=== PATIENT | male | born 1945 | race Caucasian/White ===

== ENCOUNTER 2018-04-21 11:17 | Outpatient (CLI) | payer MEDICARE, MEDICAID ==
[2018-04-21 13:10] LABS: Bilirubin Small (Negative); Blood, Urine Negative (Negative); Clarity CLEAR (Clear); Glucose, Urine (Dipstick) Negative (Negative); Leukocyte Trace (Negative); Nitrite Negative (Negative); Protein, Urine (Dipstick) Negative (Neg-Trace); Specific Gravity, Urine 1.019 (1.002-1.036); pH, Urine 7.5 (5.0-9.0)
[2018-04-21 13:13] LABS: Bacteria/HPF None Seen HPF (None Seen); Hyaline Casts/LPF 0-3 HYALINE CAST LPF (0-3 Hyaline); Pathc Cast-AUWi Flag 0.14 (0-2.49); Squamous Epithelial 0-3 HPF (0-3); WBC/HPF 0-3 HPF (0-3)
[2018-04-21 13:16] LABS: Hemoglobin 12.2 g/dL (14.0-18.0); Mean Corpuscular HGB CONC 32.5 g/dL (32.0-36.0); Mean Corpuscular Hemoglobin 32.9 pg (27.0-31.0); Mean Platelet Volume 8.1 fL (7.4-10.4); Platelet Count 243 thou/uL (130-400); RBC Distribution Width 15.6 % (11.5-14.5); Red Blood Cell (RBC) Count 3.72 mill/uL (4.70-6.10); White Blood Cell (WBC) Count 5.8 thou/uL (4.8-10.8)
[2018-04-21 13:18] LABS: INR-International Normal Ratio 1.1; PTT 32.9 SEC (22.9-36.1)
[2018-04-21 13:27] LABS: Anion Gap 13 mmol/L (10-20); BUN (Urea Nitrogen) 14 mg/dL (8.4-25.7); Calc. Creatinine Clearance 0 mL/min (70-130); Calcium 8.5 mg/dL (7.8-10.44); Carbon Dioxide 23 mmol/L (23-31); Chloride 103 mmol/L (98-107); Estimated GFR-MDRD 52; Glucose 176 mg/dL (80-115); Sodium 135 mmol/L (136-145)
== END 2018-04-21 11:18 | disposition home or self-care (01) ==
LOC: LABBT 11:17
PROVIDERS: ATTEND Urology
DX: Z01.818 Encounter for other preprocedural examination (principal); N47.8 Other disorders of prepuce
CPT/HCPCS: 80048; 81001; 85027; 85610; 85730; 87086; 93005; 93010

== ENCOUNTER 2018-05-05 05:49 | Day surgery (SDC) | payer MEDICARE, MEDICAID ==
[2018-04-21 12:10] VITALS: BMI 24.0
[2018-05-05] MEDS ORDERED: CEFAZOLIN 1 GM VIAL ONE (06:34)
[2018-05-05] MEDS ORDERED: Sodium Chloride 0.9% 100 ML ONE (06:34)
[2018-05-05] MEDS ORDERED: Bacitracin Zinc Ointment 30 gm TUBE ONE (06:35)
[2018-05-05] MEDS ORDERED: Bupivacaine 0.25% HCL 30 ML VIAL ONE (06:35)
[2018-05-05] MEDS ORDERED: Midazolam HCl 2 mg/2 ml Vial ONE (06:46)
[2018-05-05] MEDS ORDERED: Fentanyl 100 MCG/2 ML VIAL ONE ×2 (06:46→09:03)
--- NOTE | 2018-05-05 09:58 | OP ---
DATE OF PROCEDURE: 05/05/2018 PREOPERATIVE DIAGNOSES: A 72-year-old male with history of benign prostatic hyperplasia, h/o chronic prostatitis, severe phimosis. POSTOPERATIVE DIAGNOSES: A 72-year-old male with history of benign prostatic hyperplasia, h/o chronic prostatitis, severe phimosis. PROCEDURE: Circumcision. SURGEON: Juanita Ramirez D.O. ANESTHESIA: LMA. COMPLICATIONS: None apparent. SPECIMEN: Foreskin. INTRAOPERATIVE FINDINGS: Tight phimosis. INDICATIONS FOR THE PROCEDURE AND HISTORY: Mr. Waters is a 72-year-old male with history of BPH, history of chronic prostatitis. His prior cystoscopy demonstrated mild BPH with no evidence of urethral stricture disease. However, he has tight phimosis. As this is most likely culprit for recurrent UTI/ bacteria, he is advised regarding circumcision. He has been seen by Dr. Bermudez, cleared to proceed, and has transitioned Plavix and full-dose aspirin to baby aspirin. Risks and complications of the procedure were reviewed with him in detail including, but not limited to, bleeding, pain, infection, injury to adjacent organs, penile curvature, meatal stenosis, wound complications. All questions were answered to his satisfaction, and he desired to proceed. DESCRIPTION OF THE PROCEDURE: After an informed consent is signed, the patient is taken to the operating room, placed in supine position with the genital area prepped and draped in the usual surgical sterile fashion. His foreskin is so tight that I was unable to reduce manually. Therefore, I did utilize a hemostat to dilate his prepuce. Subsequently, with manipulation, I was able to reduce his foreskin. Tight paraphimotic ring was noted. The foreskin was marked at the level of the coronal sulcus and the ring of foreskin was excised with a 15 blade. Good hemostasis was obtained of the dartos fascia intermittently with electrocautery. The foreskin was then reapproximated using 2-0 chromic in an interrupted fashion. He tolerated the procedure well. Good approximation was noted. Approximately 7 mL of 0.25% Marcaine was utilized for local penile block. The patient discharged with Keflex for 7 days, Colace, [place] 5/325 #30 provided 1 p.o. q.6-8 hours p.r.n. He will follow up with me next for a wound check. He is advised to continue to hold his Plavix, full-dose aspirin; may continue his baby aspirin. Appointment 05/13/2018. PAULINA
[2018-05-05] MEDS ORDERED: ePHEDrine/0.9% NaCl/PF SYRINGE 50 mg/10 ml ONE (15:43)
[2018-05-05] MEDS ORDERED: PROPOFOL 200 MG/20 ML VIAL ONE (15:43)
[2018-05-05] MEDS ORDERED: Lidocaine 1% PF 5 ML VIAL ONE (15:43)
[2018-05-05] MEDS ORDERED: Ondansetron HCl/PF 4 MG/2 ML Vial ONE (15:43)
== END 2018-05-05 11:05 | disposition home or self-care (01) ==
LOC: SDC 05:49
PROVIDERS: ATTEND Urology
PROC: 0VTTXZZ Resection of Prepuce, External Approach (ICD-10-PCS; principal; 2018-05-05)
DX: N47.1 Phimosis (principal); N40.1 Benign prostatic hyperplasia with lower urinary tract symptoms; N41.1 Chronic prostatitis; I10 Essential (primary) hypertension; I25.10 Atherosclerotic heart disease of native coronary artery without angina pectoris; F12.20 Cannabis dependence, uncomplicated; F10.20 Alcohol dependence, uncomplicated; Z79.02 Long term (current) use of antithrombotics/antiplatelets; Z79.899 Other long term (current) drug therapy
CPT/HCPCS: 88304; 96374; J0690; J2001; J2250; J2405; J2704; J3010; J7050; S0020

== ENCOUNTER 2018-08-19 17:01 | Emergency (ER) | payer MEDICARE, MEDICAID ==
[2018-08-19 18:09] LABS: Hemoglobin 8.6 g/dL (14.0-18.0); Mean Corpuscular HGB CONC 31.9 g/dL (32.0-36.0); Mean Corpuscular Hemoglobin 27.7 pg (27.0-31.0); Mean Corpuscular Volume 86.9 fL (78.0-98.0); Mean Platelet Volume 7.8 fL (7.4-10.4); Platelet Count 373 thou/uL (130-400); RBC Distribution Width 16.4 % (11.5-14.5); Red Blood Cell (RBC) Count 3.11 mill/uL (4.70-6.10); White Blood Cell (WBC) Count 6.7 thou/uL (4.8-10.8)
[2018-08-19 18:23] LABS: ALT (SGPT) 13 U/L (8-55); AST (SGOT) 15 U/L (5-34); Albumin 3.6 g/dL (3.4-4.8); Alkaline Phosphatase 93 U/L (40-150); Anion Gap 15 mmol/L (10-20); BUN (Urea Nitrogen) 9 mg/dL (8.4-25.7); Bilirubin, Total 0.4 mg/dL (0.2-1.2); Calc. Creatinine Clearance 0 mL/min (70-130); Calcium 8.4 mg/dL (7.8-10.44); Carbon Dioxide 20 mmol/L (23-31); Chloride 102 mmol/L (98-107); Estimated GFR-MDRD 84; Globulin 2.8 g/dL (2.4-3.5); Glucose 123 mg/dL (83-110); Potassium 4.5 mmol/L (3.5-5.1); Protein, Total 6.4 g/dL (5.8-8.1); Sodium 132 mmol/L (136-145)
[2018-08-19 18:25] LABS: Anisocytosis SLIGHT = 6-15 cells (100X) (0-5/hpf); Band 4 % (5-11); Hypochromia SLIGHT = 6-15 cells (100X) (0-5/hpf); Lymphocytes 17 % (21-51); MDiff Complete? YES; Monocytes 7 % (0-10); Neutrophil 72 % (42-75); Ovalocytes SLIGHT = 2-5 cells (100X) (0-1/hpf); PLT Morphology Comment Appears Adequate; Polychromasia SLIGHT = 2-3 cells (100X) (0-2/hpf); Schistocytes SLIGHT = 2-5 cells (100X) (0-1/hpf); Target Cells SLIGHT = 2-5 cells (100X) (0-1/hpf); Tear Drops SLIGHT = 2-5 cells (100X) (0-1/hpf)
--- NOTE | 2018-08-19 19:06 | RAD ---
RIGHT SHOULDER RADIOGRAPH THREE VIEWS: 08/19/18 PROVIDED CLINICAL HISTORY: Right shoulder pain status post injury. FINDINGS: Probable nondisplaced fracture involving the medial third of the clavicle. No additional fracture is evident. The glenohumeral relationship appears normal. The acromioclavicular joint degenerative cotton es are seen. The subacromial space appears preserved. IMPRESSION: Probable medial right clavicular fracture. Consider dedicated clavicular radiographs. POS: [facility]
[2018-08-19] MEDS ORDERED: traMADol HCl 50 MG TAB ONE (21:09)
--- NOTE | 2018-08-19 22:09 | CT ---
CT PULMONARY ANGIOGRAM WITH IV CONTRAST AND 3D MIP RECONSTRUCTIONS 08/19/18 PROVIDED CLINICAL HISTORY: Shortness of breath and syncope. FINDINGS: There is no evidence for central or segmental pulmonary embolus. Vascular calcification including cor onary calcium is demonstrated. There is focal fluid density present within the right lower lobe segmental bronchus compatible with a spirated material. There is no parenchymal opacity associated with this. The lungs appear free of sig nificant opacity. There is no pleural fluid or pneumothorax. The airway appears otherwise patent and of normal caliber. The visualized portions of the upper abdomen demonstrate no evidence for an acute process. The osseous structures demonstrate markedly comminuted mildly displaced fracture involving t he mid and proximal aspects of the right clavicle. IMPRESSION: 1. No evidence for central or segmental pulmonary embolus. 2. Findings compatible with right lower lobe bronchial fluid density related to aspiration. No a ssociated aspiration pneumonitis is evident. There is trace right pleural fluid 3. Right clavicular fracture. POS: [facility]
--- NOTE | 2018-08-21 22:12 | EKG ---
Test Reason : Blood Pressure : / mmHG Vent. Rate : 060 BPM Atrial Rate : 060 BPM P-R Int : 138 ms QRS Dur : 160 ms QT Int : 524 ms P-R-T Axes : 052 039 148 degrees QTc Int : 524 ms Normal sinus rhythm Left bundle branch block Abnormal ECG No changes from [id number] Confirmed by NADINE EDGE DO ([id number]), senior editor VERONICA SANTAMARIA ([id number] on 08/21/2018 10:12:22 PM Referred By: Confirmed By:NADINE EDGE DO
== END 2018-08-19 21:19 | disposition home or self-care (01) ==
LOC: ERS 17:01
DX: S42.001A Fracture of unspecified part of right clavicle, initial encounter for closed fracture (principal); D64.9 Anemia, unspecified; K21.9 Gastro-esophageal reflux disease without esophagitis; E78.5 Hyperlipidemia, unspecified; I10 Essential (primary) hypertension; J44.9 Chronic obstructive pulmonary disease, unspecified; F17.210 Nicotine dependence, cigarettes, uncomplicated; Z79.899 Other long term (current) drug therapy; Z79.82 Long term (current) use of aspirin; W17.89XA Other fall from one level to another, initial encounter
CPT/HCPCS: 36415; 71275; 80053; 84484; 85025; 93005

== ENCOUNTER 2018-09-12 17:54 | Inpatient (IN) | payer MEDICARE, MEDICAID ==
[2018-09-12 18:29] LABS: #Lymphocytes 1.1 thou/uL (1.20-3.40); #Monocytes 0.7 thou/uL (0.11-0.59); #Neutrophils 5.3 thou/uL (1.40-6.50); %Basophils 0.6 % (0.0-1.0); %Eosinophils 0.2 % (0.0-10.0); %Lymphocytes 15.2 % (21.0-51.0); %Monocytes 10.3 % (0.0-10.0); %Neutrophils 73.6 % (42.0-75.0); Hemoglobin 9.9 g/dL (14.0-18.0); Mean Corpuscular HGB CONC 30.6 g/dL (32.0-36.0); Mean Corpuscular Hemoglobin 25.4 pg (27.0-31.0); Mean Corpuscular Volume 83.1 fL (78.0-98.0); Mean Platelet Volume 7.6 fL (7.4-10.4); Platelet Count 446 thou/uL (130-400); Red Blood Cell (RBC) Count 3.89 mill/uL (4.70-6.10); White Blood Cell (WBC) Count 7.1 thou/uL (4.8-10.8)
--- NOTE | 2018-09-12 18:42 | RAD ---
CHEST ONE VIEW: HISTORY: Chest pain. COMPARISON: 07/11/2016 FINDINGS: There are multiple bilateral healed rib fractures. Heart size is normal. No confluent pneumonia, ov ert edema, or pleural effusion. IMPRESSION: 1. Stable chronic changes with multiple bilateral healed rib fractures. 2. No significant acute intrathoracic disease. 3. Atherosclerosis of the aorta. POS: [facility]
[2018-09-12 18:53] LABS: ALT (SGPT) 23 U/L (8-55); AST (SGOT) 30 U/L (5-34); Albumin 4.1 g/dL (3.4-4.8); Alkaline Phosphatase 119 U/L (40-150); Anion Gap 14 mmol/L (10-20); BUN (Urea Nitrogen) 14 mg/dL (8.4-25.7); Bilirubin, Total 0.4 mg/dL (0.2-1.2); Calc. Creatinine Clearance 0 mL/min (70-130); Calcium 9.1 mg/dL (7.8-10.44); Carbon Dioxide 21 mmol/L (23-31); Chloride 103 mmol/L (98-107); Estimated GFR-MDRD Greater than 90; Glucose 82 mg/dL (83-110); Potassium 4.4 mmol/L (3.5-5.1); Protein, Total 7.1 g/dL (5.8-8.1); Sodium 134 mmol/L (136-145)
[2018-09-12] MEDS ORDERED: Nitroglycerin 2% Ointment 1 INCH/1 GM Packet ONE (19:20)
[2018-09-12] MEDS ORDERED: Ondansetron PF 4 MG/2 ML Vial IVP PRN (21:15)
[2018-09-12] MEDS ORDERED: Acetaminophen 325 MG TAB PO PRN (21:15)
[2018-09-12] MEDS ORDERED: Ondansetron ODT 4 MG TAB PO PRN (21:15)
[2018-09-12] MEDS ORDERED: Nitroglycerin 0.4 MG TAB (25 Tab Bottle) SL PRN (21:18)
[2018-09-12 22:16] LABS: CKMB 1.8 ng/mL (0-6.6)
[2018-09-12] MEDS ORDERED: Zolpidem Tartrate 5 MG TAB PO SCH (23:30)
--- NOTE | 2018-09-13 00:15 | HP ---
PRIMARY CARE DOCTOR: Dr. Mc Hendricks. RADIO TALK SHOW HOST: Dr. Bermudez. CODE STATUS: Full code. TIME OF EVALUATION: 8:55 p.m. CHIEF COMPLAINT: Chest pain. HISTORY OF PRESENT ILLNESS: This is a 73-year-old male patient with past medical history of anemia, BPH, GERD, hyperlipidemia, high cholesterol, hypertension, and COPD, came to the hospital after having chest pain, was in the middle of the chest, substernal, dull, pain is severe, might be 8/10, had some improvement with nitroglycerin that was given in the EMS, worsening with exertion and improved with resting. The patient have a strong cardiac history. REVIEW OF SYSTEMS: CONSTITUTIONAL: No fever, chills, or generalized weakness. RESPIRATORY: No cough, sputum production, or shortness of breath. CARDIOVASCULAR: The patient has chest pain. No palpitations. GASTROINTESTINAL: No nausea. No vomiting, diarrhea, or abdominal pain. COMPUTER SYSTEMS INTEGRATOR: No dizziness, headache, or feeling lightheaded. GENITOURINARY: No burning on urination. EXTREMITIES: No leg swelling. All other systems were reviewed and negative except for the findings mentioned above. PAST MEDICAL HISTORY: Reported in HPI. PAST SURGICAL HISTORY: 6 to 7 stents that were placed before, aortobifemoral bypass, right common femoral artery endarterectomy. SOCIAL HISTORY: The patient drinks socially once a month. No drugs. Smokes cigarettes of a pack per day. No drugs reported. ALLERGIES: NO KNOWN DRUG ALLERGIES. FAMILY HISTORY: Reviewed and non contributory for current presentation. REPORTED MEDICATIONS: Aspirin, tamsulosin, Lasix, Ambien. PHYSICAL EXAMINATION: VITAL SIGNS: On presentation, blood pressure 176/74 with heart rate 89, respiratory rate was 20, temperature 98.9, pain 0/10, oxygen saturation 98% on room air. GENERAL APPEARANCE: The patient is alert, oriented, not in acute distress. HEENT: Eyes, normal conjunctivae. Moist oral mucosa. Anicteric. No JVD. RESPIRATORY: Bilateral air entry. No rales. No wheezes. Symmetric expansion. CARDIOVASCULAR: Normal rate. Regular rhythm. No murmurs. No gallops. No edema. ABDOMEN: Soft. Normal bowel sounds. MUSCULOSKELETAL: Baseline range of motion and strength. No tenderness. SKIN: Warm and intact. No pallor. No rash. No redness. Peripheral pulses are present. Capillary refill seems to be intact. NEUROLOGIC: No evidence of any new focal weakness. Baseline speech. Cranial nerves seems to be intact. PSYCH: The patient has good mood. No anxiety. Optimal judgment. IMAGING STUDIES: EKG was reviewed and it showed normal sinus rhythm with a rate of 86 with MN 138, QRS 154 chest x-ray was reviewed. The patient has a stable chronic changes with multiple bilateral healed rib fractures. No significant acute intrathoracic disease. Atherosclerosis of the aorta. LABORATORY DATA: Labs were reviewed. The patient has white count 7.1, hemoglobin 9.9, MCV 83, platelet count 446. Chemistry; sodium 134, potassium 4.4, chloride 103, carbon dioxide 21, anion gap 14, BUN 14, creatinine 0.74, GFR greater than 90, glucose 82, calcium 9.1, total bilirubin 0.4, AST 30, ALT 23, alkaline phosphatase 119. Troponin 0.026, second one 0.040. ASSESSMENT AND PLAN: The patient will be placed in the hospital with following medical problems: 1. Chest pain rule out acute coronary syndrome. The patient's first troponin was negative, second one was 0.040. The patient follows with Dr. Bermudez as outpatient. The patient has strong cardiac history with previous stents, the pain sounds cardiac by history, the patient has a high pretest probability for the stress test. We will consult Dr. Bermudez for any further recommendations regarding workup. 2. Chronic hyponatremia with sodium of 134. This is mild, no need for any acute intervention. We will monitor and we will treat accordingly. 3. Normocytic anemia of 9.9, previous hemoglobin was 8.6, seems to be stable. We will monitor and will treat accordingly. 4. Gastroesophageal reflux disease, reconcile home medications. 5. High cholesterol, reconcile home medication, low-cholesterol diet is advised. 6. Uncontrolled hypertension, systolic blood pressure 176, reconcile home medications. Might need some IV p.r.n. medication for optimal control. 7. History of chronic obstructive pulmonary disease. This problem seems to be stable. We will monitor, we will reconcile home medications. We will adjust treatment accordingly. 8. Deep venous thrombosis prophylaxis. Job ID: [id number] [facility]
[2018-09-13] MEDS ORDERED: Prevnar 13-Val Conj/PF 0.5 ML SYRINGE IM ONE (00:30)
[2018-09-13 06:21] LABS: Anion Gap 17 mmol/L (10-20); BUN (Urea Nitrogen) 12 mg/dL (8.4-25.7); Calc. Creatinine Clearance 89 mL/min (70-130); Calcium 8.9 mg/dL (7.8-10.44); Carbon Dioxide 17 mmol/L (23-31); Chloride 103 mmol/L (98-107); Estimated GFR-MDRD Greater than 90; Glucose 83 mg/dL (83-110); Sodium 133 mmol/L (136-145)
[2018-09-13 06:52] LABS: Band 4 % (5-11); Hemoglobin 10.2 g/dL (14.0-18.0); Lymphocytes 16 % (21-51); MDiff Complete? YES; Mean Corpuscular HGB CONC 30.5 g/dL (32.0-36.0); Mean Corpuscular Hemoglobin 25.7 pg (27.0-31.0); Mean Corpuscular Volume 84.1 fL (78.0-98.0); Mean Platelet Volume 7.9 fL (7.4-10.4); Monocytes 9 % (0-10); Neutrophil 71 % (42-75); Platelet Count 400 thou/uL (130-400); RBC Distribution Width 18.2 % (11.5-14.5); Red Blood Cell (RBC) Count 3.98 mill/uL (4.70-6.10); White Blood Cell (WBC) Count 6.9 thou/uL (4.8-10.8)
[2018-09-13] MEDS: Ferrous Sulfate 325 MG TAB PO SCH (07:45)
[2018-09-13] MEDS: Clopidogrel Bisulfate 75 MG TAB PO SCH (07:45)
[2018-09-13] MEDS: Furosemide 40 MG TAB PO SCH (07:45)
[2018-09-13] MEDS: Gabapentin 300 MG CAP PO SCH ×3 (07:45→20:13)
[2018-09-13] MEDS: Aspirin 325 MG TAB PO SCH (07:46)
[2018-09-13] MEDS: Citalopram 20 MG TAB PO SCH (07:46)
[2018-09-13] MEDS: Carvedilol 6.25 MG TAB PO SCH ×2 (07:46→20:12)
[2018-09-13] MEDS: Enoxaparin Sodium 40 MG/0.4 ML SYRINGE SC SCH (07:46)
[2018-09-13] MEDS ORDERED: Regadenoson 0.4 MG/5 ML SYRINGE ONE (12:03)
--- NOTE | 2018-09-13 13:46 | NM ---
CARDIAC SPECT WITH EJECTION FRACTION AND WALL MOTION: HISTORY: Chest pain. History of coronary artery disease and coronary artery bypass graft and stent. COPD, hype rtension, dyslipidemia, and smoking history. TECHNIQUE: Patient was injected with 28.2 mCi technetium-99m sestamibi intravenously for stress images and patie nt was injected with 9.0 mCi technetium-99m sestamibi intravenously for resting images. FINDINGS: Multiple SPECT images in the short axis, vertical long axis, and horizontal long axis demonstrate jak e minimal decreased activity in the basilar portion of the inferior wall and inferior septal region, possibly related to some old infarct changes. No evidence for ischemia. TID: 1.08 LHR: 0.27 EDV: 105 mL EF: 34% MYOCARDIAL PERFUSION WALL MOTION: There is some septal dyskinesis. IMPRESSION: No evidence for ischemia. Possible small inferior wall area of infarct or scar. 34% ejection fraction . Fairly prominent septal dyskinesis. POS: [facility]
--- NOTE | 2018-09-13 15:06 | PDOC.PN ---
- Subjective Encounter Start Date: 09/13/18 Encounter Start Time: 15:04 Subjective: chest pain resolved - Objective Resuscitation Status - Order Detail: 09/12/18 21:15 Resuscitation Status Routine Resuscitation Status: FULL: Full Resuscitation MAR Reviewed: Yes Vital Signs & Weight: Vital Signs (12 hours) Temp Pulse Resp BP BP Pulse Ox 09/13/18 12:30 85 14 99 09/13/18 12:00 97.3 F L 102 H 20 135/73 96 09/13/18 07:16 97.8 F 99 20 142/79 H 98 09/13/18 06:20 88 14 98 09/13/18 04:15 102 H 18 139/79 96 Weight Weight 135 lb 6.4 oz I&O: 09/12/18 09/13/18 09/14/18 06:59 06:59 06:59 Output Total 400 Balance -400 Result Diagrams: 09/13/18 05:53 09/13/18 05:53 Phys Exam - Physical Examination Neck: no JVD Respiratory: clear to auscultation bilateral Cardiovascular: RRR, no significant murmur Gastrointestinal: soft, non-tender, positive bowel sounds Musculoskeletal: no edema Dx/Plan (1) Chest pain Code(s): R07.9 - CHEST PAIN, UNSPECIFIED Status: Acute (2) CAD (coronary artery disease) Code(s): I25.10 - ATHSCL HEART DISEASE OF [place] CORONARY ARTERY W/O ANG PCTRS Status: Chronic Qualifiers: Coronary Disease-Associated Artery/Lesion type: [place] artery [place] vs. transplanted heart: [place] heart Associated angina: without angina Qualified Code(s): I25.10 - Atherosclerotic heart disease of [place] coronary artery without angina pectoris (3) COPD (chronic obstructive pulmonary disease) Status: Chronic Qualifiers: Emphysema type: unspecified (4) Hypertension Code(s): I10 - ESSENTIAL (PRIMARY) HYPERTENSION Status: Chronic Qualifiers: Hypertension type: essential hypertension Qualified Code(s): I10 - Essential (primary) hypertension (5) PVD (peripheral vascular disease) Code(s): I73.9 - PERIPHERAL VASCULAR DISEASE, UNSPECIFIED Status: Chronic (6) Tobacco abuse Code(s): Z72.0 - TOBACCO USE Status: Chronic - Plan stress test, no ischemia, but LVEF 34% -: echo ordered, start DEMIAN -: discuss with Dr Bermudez * .
[2018-09-13] MEDS: Tamsulosin HCl 0.4 MG CAP PO SCH (20:12)
[2018-09-13] MEDS: Ezetimibe 10 MG TAB PO SCH (20:12)
[2018-09-13] MEDS: Zolpidem Tartrate 5 MG TAB PO SCH (20:13)
[2018-09-13] MEDS: Atorvastatin Calcium 40 MG TAB PO SCH (20:13)
--- NOTE | 2018-09-14 03:09 | CON ---
DATE OF CONSULTATION: HISTORY OF PRESENT ILLNESS: Samuel Waters is a 73-year-old white male whom I initially saw in April 2012. All day long, he had been smoking very strong marijuana and had onset of chest discomfort. When he arrived, EKG showed ST- segment elevation in II, III, and F, and ST-segment depression across the precordium. In the emergency room, he was given heparin and nitroglycerin and probably reperfused and then developed torsade and was defibrillated. He was sent to the label drier and he was found not to have a palpable pulse in the right femoral area. The left femoral area had pulse and a sheath was placed. However, upon injection into the sheath, it was seen that he had a totally occluded left iliac. Therefore, the case was performed via the left brachial artery. He had a 70% proximal LAD, long 90 % mid circumflex, right coronary artery was small with 70% mid stenosis. Due to his anticipated noncompliance, a bare metal stent-Integrity 3.5 x 26 mm and 3.5 x 22 mm stents were placed in the circumflex with reduction of 90% to 0%. LDL was 106 and he was placed on simvastatin. Urine drug screen was positive for marijuana. Echocardiogram prior to discharge revealed moderate inferobasal and posterior wall hypokinesis with ejection fraction of 50% to 55%. Mild mitral, pulmonic, and tricuspid regurgitation. He returned 1 month later and again underwent catheterization via left brachial approach. Integrity 3.5 x 20 mm stent was placed in the proximal LAD with reduction from 80% to 0%. Integrity 2.5 x 20 mm stent was placed in the mid RCA with reduction from 70% to 0%. Left ventriculogram revealed normal left ventricular function with ejection fraction of 60% to 65%. Abdominal aortogram revealed the abdominal aorta to be totally occluded just distal to the renal arteries. He returned 11 days later with chest discomfort. His troponin peaked to 2.57. He underwent Cardiolite testing, which revealed no evidence of ischemia. It was felt that this may have been due to a jailed RCA branch vessel. His Plavix was changed to Effient. In June 2012, he then underwent aortobifemoral bypass grafting for his totally occluded aorta. Afterwards, he had dramatic improvement in his leg pain. He was not seen from September 2013 until July 2015. He started to have exertional chest discomfort again. Cardiolite revealed proximal and mid inferior wall fixed defect with distal inferior wall ischemia and apical ischemia. He then underwent redo-stenting of the mid circumflex with Promus 3.0 x 18 and 3.5 x 32 , and of the mid right coronary artery with Promus 2.5 x 28. These were drug-eluting stents and the decision was made to place those since he was not coming up on any surgery like he did after his aortobifemoral bypass. He was admitted again in July 2016 with hemoglobin dropping to 7.7 and increased episodes of chest discomfort. In April 2016, he had undergone EGD which was normal. Also in April 2016, colonoscopy revealed polyps, diverticulosis coli, and hemorrhoids. He was transfused, then did have a non-STEMI. He then underwent repeat catheterization and Rebel 3.5 x 16 mm stent was placed in an 80% in-stent restenosis in the mid circumflex. A bare metal stent was placed due to his anemia. Also during that admission, he underwent right carotid endarterectomy. I do not see that he underwent repeat GI evaluation. Then in August 2016, he underwent left carotid endarterectomy. Last time, I saw him was in the office in February 2018. He did complain of left calf claudication and arrangements were made for him to see the vascular surgeons. However, in talking with him, apparently he never went to that appointment. Also during that office visit, an echocardiogram revealed ejection fraction of 40% to 45% with evidence for diastolic dysfunction, aortic valvular sclerosis, and mild tricuspid regurgitation. He now is admitted with exertional chest pressure lasting approximately 5 minutes. He started to get this on almost a daily basis. Cardiolite revealed a small fixed defect, but no reversible ischemia. However, ejection fraction is 34%. Cardiology consultation is requested. 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 PAST SURGICAL HISTORY: Multiple stent placements in the coronary arteries as noted above, aortobifemoral bypass, right common femoral artery endarterectomy. He has undergone bilateral carotid endarterectomies. MEDICATIONS: 1. Aspirin 325 daily. 2. Atorvastatin 80 daily. 3. Zetia 10 mg daily. 4. Carvedilol 12.5 mg b.i.d. 5. Citalopram 20 mg daily. 6. Plavix 75 q.a.m. 7. Nexium 40 b.i.d. 8. Iron 65 daily. 9. Furosemide 20 daily. 10. Neurontin 300 mg t.i.d. 11. Isosorbide mononitrate 30 daily. 12. Nitroglycerin p.r.n. 13. Flomax 0.4 at bedtime. 14. Ambien 10 mg at bedtime. 15. Anoro Ellipta 1 puff daily. ALLERGIES: NONE. SOCIAL HISTORY: He continues to smoke 1 pack per day. He has been heavy drinker in the past and continues to drink 2 to 3 beers per day. REVIEW OF SYSTEMS: A 10-point review of systems unremarkable except for left calf claudication. PHYSICAL EXAMINATION: VITAL SIGNS: Blood pressure 139/79, pulse of 79. HEENT: PERRL. NECK: Supple. CHEST: Clear except for late expiratory wheezing. CARDIOVASCULAR: S1 and S2 normal without any S3, S4, or murmurs. ABDOMEN: Normal bowel sounds without tenderness or organomegaly. EXTREMITIES: Revealed no clubbing, cyanosis, or edema. Dorsalis pedis and posterior tibial pulses are intact. NEUROLOGIC: Grossly intact. LABORATORY DATA: EKG reveals normal sinus rhythm and left bundle-branch block. He has had the left bundle-branch block for at least a couple of years. Cardiolite revealed no evidence of ischemia. There was possible small inferior wall infarction or scar. Ejection fraction was 34%. Hemoglobin 10.2, hematocrit 33.5, white count 6900, platelets 400,000. Sodium 133, potassium 4.0, chloride 103, carbon dioxide 17, BUN 12, creatinine 0.66. Troponin I 0.040. IMPRESSION: 1. Acute coronary syndrome with increased episodes of chest discomfort over the last 2 weeks. 2. Last ejection fraction in the office of 40% to 45%; however, it is now 33% on Cardiolite and echo will be repeated. 3. History of inferoposterior ST-elevation myocardial infarction with placement ofa bare-metal stent in the mid circumflex in April 2012. 4. Three vessel coronary artery disease with ultimate bare metal stents placed in the left anterior descending and right coronary artery 1 month later. 5. History of ventricular fibrillation and torsade with defibrillation in the emergency room when he presented with myocardial infarction in April 2012. 6. Placement of drug-eluting stents in the mid circumflex in-stent restenosis and in the mid right coronary artery in-stent restenosis. 7. Placement of bare-metal stent in July 2016 in mid circumflex in-stent restenosis. This was due to the patient presenting with hemoglobin of 7.7. 8. Smoker. 9. Hypertension. 10. Hypercholesterolemia. 11. History of ETOH abuse. 12. History of drug abuse with urine positive for cannabinoids in the past. Also in the past, his stated that he like to take crystal methamphetamines. 13. Positive family history. 14. Status post aortobifemoral bypass for totally occluded aorta. 15. Status post bilateral carotid endarterectomies. PLAN: Echocardiogram will be performed to reassess left ventricular function. Certainly with his left bundle-branch block, he may benefit from a biventricular ICD. Despite no definite evidence of ischemia on Cardiolite, he probably will need to undergo cardiac catheterization. The tough problem would be if he has restenosed mid circumflex for a 3rd time, requiring a 4th stenting. Job ID: [id number] [facility]
[2018-09-14] MEDS: Enoxaparin Sodium 40 MG/0.4 ML SYRINGE SC SCH (08:45)
[2018-09-14] MEDS: Carvedilol 6.25 MG TAB PO SCH ×2 (08:46→21:46)
[2018-09-14] MEDS: Lisinopril 5 MG TAB PO SCH (08:46)
[2018-09-14] MEDS: Citalopram 20 MG TAB PO SCH (08:46)
[2018-09-14] MEDS: Furosemide 40 MG TAB PO SCH (08:46)
[2018-09-14] MEDS: Gabapentin 300 MG CAP PO SCH ×3 (08:46→21:47)
[2018-09-14] MEDS: Ferrous Sulfate 325 MG TAB PO SCH (08:47)
[2018-09-14] MEDS: Clopidogrel Bisulfate 75 MG TAB PO SCH (08:47)
[2018-09-14] MEDS: Aspirin 325 MG TAB PO SCH (08:47)
--- NOTE | 2018-09-14 16:08 | PDOC.PN ---
- Subjective Encounter Start Date: 09/14/18 Encounter Start Time: 16:06 Subjective: no chest pain, sob - Objective Resuscitation Status - Order Detail: 09/12/18 21:15 Resuscitation Status Routine Resuscitation Status: FULL: Full Resuscitation MAR Reviewed: Yes Vital Signs & Weight: Vital Signs (12 hours) Temp Pulse Resp BP Pulse Ox 09/14/18 14:59 97.6 F 69 21 H 90/53 L 99 09/14/18 14:01 89 18 96 09/14/18 11:38 97.4 F L 60 16 113/58 L 100 09/14/18 07:47 72 16 97 09/14/18 07:10 97.9 F 75 20 140/71 95 09/14/18 04:08 97.6 F 69 15 110/57 L 96 Weight Weight 134 lb 1.6 oz I&O: 09/13/18 09/14/18 09/15/18 06:59 06:59 06:59 Intake Total 1230 Output Total 400 1350 Balance -400 -120 Result Diagrams: 09/13/18 05:53 09/13/18 05:53 Phys Exam - Physical Examination Neck: no JVD decreased bs Cardiovascular: RRR, no significant murmur Gastrointestinal: soft, positive bowel sounds Musculoskeletal: no edema Dx/Plan (1) Chest pain Code(s): R07.9 - CHEST PAIN, UNSPECIFIED Status: Acute Qualifiers: Chest pain type: unspecified Qualified Code(s): R07.9 - Chest pain, unspecified (2) CAD (coronary artery disease) Code(s): I25.10 - ATHSCL HEART DISEASE OF [place] CORONARY ARTERY W/O ANG PCTRS Status: Chronic Qualifiers: Coronary Disease-Associated Artery/Lesion type: [place] artery [place] vs. transplanted heart: [place] heart Associated angina: without angina Qualified Code(s): I25.10 - Atherosclerotic heart disease of [place] coronary artery without angina pectoris (3) COPD (chronic obstructive pulmonary disease) Status: Chronic Qualifiers: Emphysema type: unspecified (4) Hypertension Code(s): I10 - ESSENTIAL (PRIMARY) HYPERTENSION Status: Chronic Qualifiers: Hypertension type: essential hypertension Qualified Code(s): I10 - Essential (primary) hypertension (5) PVD (peripheral vascular disease) Code(s): I73.9 - PERIPHERAL VASCULAR DISEASE, UNSPECIFIED Status: Chronic (6) Tobacco abuse Code(s): Z72.0 - TOBACCO USE Status: Chronic - Plan ECHO pending -: DEMIAN started -: awaiting Cardiology recommendations * .
[2018-09-14] MEDS ORDERED: Communication Order-Pharmacy FS SCH (17:30)
[2018-09-14] MEDS: Atorvastatin Calcium 40 MG TAB PO SCH (21:46)
[2018-09-14] MEDS: Tamsulosin HCl 0.4 MG CAP PO SCH (21:47)
[2018-09-14] MEDS: Ezetimibe 10 MG TAB PO SCH (21:47)
[2018-09-14] MEDS: Zolpidem Tartrate 5 MG TAB PO SCH (21:49)
[2018-09-15] MEDS ORDERED: Sodium Chloride 0.9% 1,000 ML IV SCH ×2 (06:00→08:33)
[2018-09-15] MEDS ORDERED: Heparin 10,000 UNITS/1 ML VIAL ONE (06:32)
[2018-09-15] MEDS ORDERED: Midazolam HCl 2 mg/2 ml Vial ONE (07:15)
[2018-09-15] MEDS ORDERED: Fentanyl 100 MCG/2 ML VIAL ONE (07:16)
[2018-09-15] MEDS ORDERED: Bivalirudin 250 MG VIAL ONE (08:01)
[2018-09-15] MEDS ORDERED: Morphine 4 MG/ML VIAL SLOW IVP PRN (08:27)
[2018-09-15] MEDS ORDERED: Morphine 2 MG/ML SYRINGE SLOW IVP PRN (08:38)
[2018-09-15] MEDS ORDERED: Morphine 2 MG/ML SYRINGE ONE (08:48)
[2018-09-15] MEDS ORDERED: Morphine 4 MG/ML VIAL ONE (10:57)
[2018-09-15] MEDS ORDERED: Iopamidol 370 76% 50 ML VIAL FS ONE (11:34)
[2018-09-15] MEDS ORDERED: Iopamidol 370 76% 100 ML VIAL ONE (11:34)
--- NOTE | 2018-09-15 14:03 | PDOC.PN ---
- Subjective Encounter Start Date: 09/15/18 Encounter Start Time: 14:01 Subjective: no chest pain, upset over results of cath- CABG recommended - Objective Resuscitation Status - Order Detail: 09/12/18 21:15 Resuscitation Status Routine Resuscitation Status: FULL: Full Resuscitation MAR Reviewed: Yes Vital Signs & Weight: Vital Signs (12 hours) Temp Pulse Resp BP BP Pulse Ox 09/15/18 13:09 68 20 98 09/15/18 12:15 98.1 F 75 20 166/74 H 99 09/15/18 03:15 98.3 F 74 16 110/52 L 96 Weight Weight 136 lb 14.4 oz I&O: 09/14/18 09/15/18 09/16/18 06:59 06:59 06:59 Intake Total 1230 1060 1065 Output Total 1350 1200 350 Balance -120 -140 715 Result Diagrams: 09/13/18 05:53 09/13/18 05:53 Phys Exam - Physical Examination Neck: no JVD occ rhoncho, decresed BS Cardiovascular: RRR, no significant murmur Gastrointestinal: soft, positive bowel sounds Musculoskeletal: no edema Dx/Plan (1) Chest pain Code(s): R07.9 - CHEST PAIN, UNSPECIFIED Status: Acute Qualifiers: Chest pain type: unspecified Qualified Code(s): R07.9 - Chest pain, unspecified (2) CAD (coronary artery disease) Code(s): I25.10 - ATHSCL HEART DISEASE OF [place] CORONARY ARTERY W/O ANG PCTRS Status: Chronic Qualifiers: Coronary Disease-Associated Artery/Lesion type: [place] artery [place] vs. transplanted heart: [place] heart Associated angina: without angina Qualified Code(s): I25.10 - Atherosclerotic heart disease of [place] coronary artery without angina pectoris (3) COPD (chronic obstructive pulmonary disease) Status: Chronic Qualifiers: Emphysema type: unspecified (4) Hypertension Code(s): I10 - ESSENTIAL (PRIMARY) HYPERTENSION Status: Chronic Qualifiers: Hypertension type: essential hypertension Qualified Code(s): I10 - Essential (primary) hypertension (5) PVD (peripheral vascular disease) Code(s): I73.9 - PERIPHERAL VASCULAR DISEASE, UNSPECIFIED Status: Chronic (6) Tobacco abuse Code(s): Z72.0 - TOBACCO USE Status: Chronic - Plan pos cath, CVS consulted, plavix stopped * .
[2018-09-15] MEDS: Furosemide 40 MG TAB PO SCH (14:54)
[2018-09-15] MEDS: Aspirin 325 MG TAB PO SCH (14:54)
[2018-09-15] MEDS: Citalopram 20 MG TAB PO SCH (14:54)
[2018-09-15] MEDS: Carvedilol 6.25 MG TAB PO SCH ×2 (14:54→21:07)
[2018-09-15] MEDS: Ferrous Sulfate 325 MG TAB PO SCH (14:54)
[2018-09-15] MEDS: Lisinopril 5 MG TAB PO SCH (14:55)
[2018-09-15] MEDS: Gabapentin 300 MG CAP PO SCH ×3 (14:55→21:07)
--- NOTE | 2018-09-15 19:39 | CON ---
DATE OF CONSULTATION: 09/15/2018 REQUESTING PHYSICIAN: Dr. Bermudez. PRIMARY CARE PHYSICIAN: Dr. Mc Hendricks. CHIEF COMPLAINT: Chest pain. HISTORY OF PRESENT ILLNESS: The patient is a 73-year-old inveterate smoker. He has an extensive cardiovascular history, having undergone multiple coronary stenting procedures, staged bilateral carotid endarterectomies and an aortobifemoral bypass. He has been having almost daily chest pressure on exertion and presented with one of these episodes of chest pain. Cardiolite showed no reversible ischemia and only a very small fixed defect consistent with his known history of a previous inferior ST-elevation myocardial infarction, but he had a small rise and fall in his troponin. Cardiac catheterization today showed the patency of his LAD stent, but a suspicious lesion at the distal extent of it that was confirmed to be significant by FFR and occlusion of his stent in his circumflex system beyond mildly diseased OM1. He has a left dominant system and the distal circumflex vessels are known to be of relatively small caliber. His LVEF though moderately reduced at around 30% to 40%. It is significantly better than the 20% or so from the July of 2016 at the time of his last cardiac catheterization. At that time, his apex was quite hypokinetic. PAST MEDICAL HISTORY: Significant for hypertension, hypercholesterolemia, substance abuse, benign prostatic hypertrophy. He had ventricular fibrillation and torsade associated with previous myocardial infarction. MEDICATIONS: He claims to be fully compliant with all of his home medications including adult aspirin and Plavix. His medications list is: 1. Coreg 12.5 mg b.i.d. 2. Isordil 30 mg a day. 3. Lasix 20 mg a day. 4. Adult aspirin. 5. Plavix 75 mg. 6. Zetia 10 mg at bedtime. 7. Nexium 40 mg b.i.d. 8. Lipitor 80 mg at bedtime. 9. Flomax. 10. Neurontin 300 mg t.i.d. 11. Anoro Ellipta. 12. Ambien at bedtime. 13. Citalopram 20 mg a day. 14. P.r.n. nitroglycerin. 15. Lisinopril 5 mg a day has been added to his regimen. 16. His Plavix was stopped before this morning's dose. 17. Protonix has been substituted for his Nexium and he is on scheduled DuoNeb. ALLERGIES: HE DENIES ANY MEDICAL ALLERGIES. SOCIAL HISTORY: He is a long-term smoker. He claims to now be smoking about half a pack of cigarettes a day. FAMILY HISTORY: Significant for a brother with coronary artery disease and another brother with peripheral vascular disease. He is unsure about medical history of his parents. REVIEW OF SYSTEMS: Positive for persistent numbness and tingling in his right foot. The nighttime rest pain and severe claudication in his right leg resolved after his aortobifemoral bypass. His carotid stenoses were asymptomatic at the time, they were done in 2017, and he remains asymptomatic. He is a little bit vague on his dyspnea on exertion. PHYSICAL EXAMINATION: GENERAL: He is a somewhat disheveled weathered-appearing man. VITAL SIGNS: He is 5 feet 6 inches, weighs 136 pounds. Heart rate 68, blood pressure 114/53, temperature is 98.1, room air O2 saturations are 98%. HEENT: He may have some xanthelasma. NECK: He has no JVD. He has bilateral carotid bruits. LUNGS: He has distant but clear breath sounds. HEART: Regular rate and rhythm without murmur or gallop. ABDOMEN: Soft and nontender with well-healed surgical scar. He has surgical scars in both groins. MUSCULOSKELETAL: He has palpable femoral pulses. No palpable pulses at the popliteal or pedal level. Capillary refill is about 1.5 to 2 seconds. He has thickened nailbeds on his toes and atrophic skin changes. He has palpable radial pulses. He has nicotine staining of his fingernails with clubbing. He has a flexion contracture of the distal phalanx on one of his right fingers and he has significant lean and larger in the proximal phalanx of his left index finger following an injury several years ago. He has extremely poor dentition. LABORATORY EXAM: White count 7.1, hemoglobin 9.9, hematocrit 32.3, platelets 446,000. Electrolytes normal. Glucose 82, BUN 14, creatinine 0.74. LFTs were normal. Calcium was 9.1, albumin 4.1, triglycerides 50, cholesterol 110, LDL 46, HDL 54. His initial troponin about 620; on the evening of the 3rd, it was 0.26; at about 9:30, it was 0.040; and at about 6 in the morning of the 4th, it was 0.023. His chest x-ray has some aortic knob calcifications and lung chauhan consistent with COPD. Cardiac catheterization shows a left dominant system. There is a patent stent in a small nondominant right. He has a long proximal LAD stent that appears patent and then shortly after that, there was a deviation in the course of the LAD at the takeoff of the diagonal and these is modest lesion and in one view, there is hazy cleft-like lesion and on FFR, it was 0.79. There is a 30% or 40% lesion in a large OM1 and then an occlusion of a long stent in the groove circumflex leading to what probably represent underfilled posterolateral and PDA vessels. In looking at the films from 2016, at that time when the stent was patent, those vessels appeared to be somewhere around 1.5 mm in caliber, close to the groove, but quickly became small. LVEF is around 35%, perhaps as much as 40%. LV pressures were 91/4 with an EDP of 7 and 91/3 with an EDP of 3. Aortic pressure on pullback from the /3 was 91/36 with a mean of 57. IMPRESSION AND RECOMMENDATIONS: The patient's heart rate and blood pressure are already both low enough that is going to really be hard to improve his medical management any. He has a large LAD that wraps around the apex and a lesion in it that by FFR is certainly significant. His OM1 is a large vessel with probably does not have a significant lesion at its origin. The circumflex beyond that is occluded, but those vessels distally are rather small. His lung disease is certainly going to put him at increased risk for complications, but do not appear to be a prohibitively bad when I asked him to blow out hard against my hand and stressed him and needed him to make a good effort. He was able to exhale reasonably forcefully, although not obviously, not normally. I am going to tentatively plan on bypass surgery early next week given his long-term maintenance of Plavix to try to minimize bleeding risk. Job ID: [id number]
[2018-09-15] MEDS: Ezetimibe 10 MG TAB PO SCH (21:07)
[2018-09-15] MEDS: Atorvastatin Calcium 40 MG TAB PO SCH (21:08)
[2018-09-15] MEDS: Tamsulosin HCl 0.4 MG CAP PO SCH (21:08)
[2018-09-15] MEDS: Zolpidem Tartrate 5 MG TAB PO SCH (21:08)
[2018-09-16 06:06] LABS: #Eosinphils 0.1 thou/uL (0.0-0.7); #Lymphocytes 1.3 thou/uL (1.20-3.40); #Monocytes 0.9 thou/uL (0.11-0.59); #Neutrophils 6.6 thou/uL (1.40-6.50); %Basophils 0.4 % (0.0-1.0); %Eosinophils 1.7 % (0.0-10.0); %Lymphocytes 14.5 % (21.0-51.0); %Monocytes 10.1 % (0.0-10.0); %Neutrophils 73.4 % (42.0-75.0); Mean Corpuscular HGB CONC 30.3 g/dL (32.0-36.0); Mean Corpuscular Hemoglobin 25.5 pg (27.0-31.0); Mean Corpuscular Volume 84.2 fL (78.0-98.0); Platelet Count 308 thou/uL (130-400); RBC Distribution Width 17.8 % (11.5-14.5); Red Blood Cell (RBC) Count 3.12 mill/uL (4.70-6.10); White Blood Cell (WBC) Count 9.1 thou/uL (4.8-10.8)
[2018-09-16 07:07] LABS: ALT (SGPT) 24 U/L (8-55); AST (SGOT) 17 U/L (5-34); Albumin 3.4 g/dL (3.4-4.8); Alkaline Phosphatase 100 U/L (40-150); Anion Gap 9 mmol/L (10-20); BUN (Urea Nitrogen) 16 mg/dL (8.4-25.7); Bilirubin, Total 0.4 mg/dL (0.2-1.2); Calc. Creatinine Clearance 69 mL/min (70-130); Calcium 8.5 mg/dL (7.8-10.44); Carbon Dioxide 26 mmol/L (23-31); Chloride 104 mmol/L (98-107); Estimated GFR-MDRD Greater than 90; Globulin 2.4 g/dL (2.4-3.5); Glucose 97 mg/dL (83-110); Potassium 3.8 mmol/L (3.5-5.1); Protein, Total 5.8 g/dL (5.8-8.1); Sodium 135 mmol/L (136-145)
--- NOTE | 2018-09-16 07:30 | PDOC.PN ---
- Subjective Encounter Start Date: 09/16/18 Encounter Start Time: 07:26 Subjective: no chest pain - Objective Resuscitation Status - Order Detail: 09/12/18 21:15 Resuscitation Status Routine Resuscitation Status: FULL: Full Resuscitation MAR Reviewed: Yes Vital Signs & Weight: Vital Signs (12 hours) Temp Pulse Resp BP BP Pulse Ox 09/16/18 04:04 97.9 F 69 16 128/59 L 96 09/16/18 00:20 64 18 95 09/15/18 21:07 115/51 L Weight Weight 127 lb 4.8 oz I&O: 09/15/18 09/16/18 09/17/18 06:59 06:59 06:59 Intake Total 1060 2325 Output Total 1200 1075 Balance -140 1250 Result Diagrams: 09/16/18 05:44 09/16/18 05:44 Additional Labs: Accuchecks 09/16/18 05:37 POC Glucose 106 Phys Exam - Physical Examination Neck: no JVD Respiratory: clear to auscultation bilateral Cardiovascular: RRR, no significant murmur Gastrointestinal: soft, no distention, positive bowel sounds Musculoskeletal: no edema, pulses present Dx/Plan (1) Chest pain Code(s): R07.9 - CHEST PAIN, UNSPECIFIED Status: Acute Qualifiers: Chest pain type: unspecified Qualified Code(s): R07.9 - Chest pain, unspecified (2) CAD (coronary artery disease) Code(s): I25.10 - ATHSCL HEART DISEASE OF [place] CORONARY ARTERY W/O ANG PCTRS Status: Chronic Qualifiers: Coronary Disease-Associated Artery/Lesion type: [place] artery [place] vs. transplanted heart: [place] heart Associated angina: without angina Qualified Code(s): I25.10 - Atherosclerotic heart disease of [place] coronary artery without angina pectoris (3) COPD (chronic obstructive pulmonary disease) Status: Chronic Qualifiers: Emphysema type: unspecified (4) Hypertension Code(s): I10 - ESSENTIAL (PRIMARY) HYPERTENSION Status: Chronic Qualifiers: Hypertension type: essential hypertension Qualified Code(s): I10 - Essential (primary) hypertension (5) PVD (peripheral vascular disease) Code(s): I73.9 - PERIPHERAL VASCULAR DISEASE, UNSPECIFIED Status: Chronic (6) Tobacco abuse Code(s): Z72.0 - TOBACCO USE Status: Chronic - Plan off plavix -: CABG 09/20 -: cont coreg, statin, etc -: Hg 8.0- check ferritin, B-12 * .
[2018-09-16] MEDS: Aspirin 325 MG TAB PO SCH (09:19)
[2018-09-16] MEDS: Furosemide 40 MG TAB PO SCH (09:19)
[2018-09-16] MEDS: Citalopram 20 MG TAB PO SCH (09:20)
[2018-09-16] MEDS: Lisinopril 5 MG TAB PO SCH (09:20)
[2018-09-16] MEDS: Gabapentin 300 MG CAP PO SCH ×3 (09:20→21:06)
[2018-09-16] MEDS: Carvedilol 6.25 MG TAB PO SCH ×2 (09:20→21:06)
[2018-09-16] MEDS: Ferrous Sulfate 325 MG TAB PO SCH (09:20)
[2018-09-16] MEDS: Ezetimibe 10 MG TAB PO SCH (21:05)
[2018-09-16] MEDS: Tamsulosin HCl 0.4 MG CAP PO SCH (21:06)
[2018-09-16] MEDS: Atorvastatin Calcium 40 MG TAB PO SCH (21:06)
[2018-09-16] MEDS: Zolpidem Tartrate 5 MG TAB PO SCH (21:09)
[2018-09-17] MEDS ORDERED: Communication Order-Pharmacy FS SCH (06:57)
--- NOTE | 2018-09-17 08:07 | PDOC.PN ---
- Subjective Encounter Start Date: 09/17/18 Encounter Start Time: 08:05 Subjective: no chest pain, sob - Objective Resuscitation Status - Order Detail: 09/12/18 21:15 Resuscitation Status Routine Resuscitation Status: FULL: Full Resuscitation MAR Reviewed: Yes Vital Signs & Weight: Vital Signs (12 hours) Temp Pulse Resp BP BP Pulse Ox 09/17/18 07:00 67 16 99 09/17/18 03:47 97.8 F 72 16 141/66 H 95 09/16/18 23:31 96 09/16/18 21:06 119/54 L Weight Weight 127 lb 4.8 oz I&O: 09/16/18 09/17/18 09/18/18 06:59 06:59 06:59 Intake Total 2325 1410 Output Total 1075 1850 Balance 1250 -440 Result Diagrams: 09/16/18 05:44 09/16/18 05:44 Phys Exam - Physical Examination Neck: no JVD Respiratory: clear to auscultation bilateral Cardiovascular: RRR, no significant murmur Gastrointestinal: soft, positive bowel sounds Musculoskeletal: no edema Dx/Plan (1) Chest pain Code(s): R07.9 - CHEST PAIN, UNSPECIFIED Status: Acute Qualifiers: Chest pain type: unspecified Qualified Code(s): R07.9 - Chest pain, unspecified (2) CAD (coronary artery disease) Code(s): I25.10 - ATHSCL HEART DISEASE OF [place] CORONARY ARTERY W/O ANG PCTRS Status: Chronic Qualifiers: Coronary Disease-Associated Artery/Lesion type: [place] artery [place] vs. transplanted heart: [place] heart Associated angina: without angina Qualified Code(s): I25.10 - Atherosclerotic heart disease of [place] coronary artery without angina pectoris (3) COPD (chronic obstructive pulmonary disease) Status: Chronic Qualifiers: Emphysema type: unspecified (4) Hypertension Code(s): I10 - ESSENTIAL (PRIMARY) HYPERTENSION Status: Chronic Qualifiers: Hypertension type: essential hypertension Qualified Code(s): I10 - Essential (primary) hypertension (5) PVD (peripheral vascular disease) Code(s): I73.9 - PERIPHERAL VASCULAR DISEASE, UNSPECIFIED Status: Chronic (6) Tobacco abuse Code(s): Z72.0 - TOBACCO USE Status: Chronic - Plan off plavix for CABG 09/20 -: cont ASA, coreg , statin, etc * .
[2018-09-17] MEDS: Citalopram 20 MG TAB PO SCH (09:01)
[2018-09-17] MEDS: Aspirin 325 MG TAB PO SCH (09:01)
[2018-09-17] MEDS: Carvedilol 6.25 MG TAB PO SCH ×2 (09:01→20:22)
[2018-09-17] MEDS: Furosemide 40 MG TAB PO SCH (09:01)
[2018-09-17] MEDS: Gabapentin 300 MG CAP PO SCH ×3 (09:01→20:23)
[2018-09-17] MEDS: Ferrous Sulfate 325 MG TAB PO SCH (09:02)
[2018-09-17] MEDS: Lisinopril 5 MG TAB PO SCH (09:02)
[2018-09-17] MEDS: ALPRAZolam 0.25 MG TAB PO PRN ×3 (11:21→21:42)
[2018-09-17] MEDS: Atorvastatin Calcium 40 MG TAB PO SCH (20:22)
[2018-09-17] MEDS: Ezetimibe 10 MG TAB PO SCH (20:23)
[2018-09-17] MEDS: Tamsulosin HCl 0.4 MG CAP PO SCH (20:23)
[2018-09-17] MEDS: Zolpidem Tartrate 5 MG TAB PO SCH (20:23)
[2018-09-18] MEDS: Ferrous Sulfate 325 MG TAB PO SCH (07:59)
[2018-09-18] MEDS: Aspirin 325 MG TAB PO SCH (07:59)
[2018-09-18] MEDS: Gabapentin 300 MG CAP PO SCH ×3 (07:59→21:19)
[2018-09-18] MEDS: Carvedilol 6.25 MG TAB PO SCH ×2 (07:59→21:20)
[2018-09-18] MEDS: Furosemide 40 MG TAB PO SCH (07:59)
[2018-09-18] MEDS: Citalopram 20 MG TAB PO SCH (08:00)
[2018-09-18] MEDS: Lisinopril 5 MG TAB PO SCH (08:00)
[2018-09-18] MEDS: ALPRAZolam 0.25 MG TAB PO PRN ×3 (08:22→21:20)
--- NOTE | 2018-09-18 13:03 | PDOC.PN ---
- Subjective Encounter Start Date: 09/18/18 Encounter Start Time: 12:58 Patient seen and examined, no new issues or complaints, all questions answered. No family at bedside. - Objective Resuscitation Status - Order Detail: 09/12/18 21:15 Resuscitation Status Routine Resuscitation Status: FULL: Full Resuscitation Vital Signs & Weight: Vital Signs (12 hours) Temp Pulse Resp BP BP BP Pulse Ox 09/18/18 09:20 70 16 09/18/18 08:00 98.3 F 73 17 105/54 L 99 09/18/18 07:59 105/54 L 09/18/18 04:00 98.2 F 70 20 106/52 L 95 Weight Weight 127 lb 4.8 oz I&O: 09/17/18 09/18/18 09/19/18 06:59 06:59 06:59 Intake Total 2370 1920 Output Total 2650 1450 Balance -280 470 Result Diagrams: 09/16/18 05:44 09/16/18 05:44 Phys Exam - Physical Examination Constitutional: NAD HEENT: PERRLA, moist MMs, sclera anicteric Neck: no nodes, no JVD, supple Respiratory: no wheezing, no rales, no rhonchi Cardiovascular: RRR, no significant murmur, no rub Gastrointestinal: soft, non-tender, no distention Musculoskeletal: no edema, pulses present Neurological: non-focal, normal sensation Dx/Plan (1) Chest pain Code(s): R07.9 - CHEST PAIN, UNSPECIFIED Status: Acute Qualifiers: Chest pain type: unspecified Qualified Code(s): R07.9 - Chest pain, unspecified (2) NSTEMI (non-ST elevated myocardial infarction) Code(s): I21.4 - NON-ST ELEVATION (NSTEMI) MYOCARDIAL INFARCTION Status: Acute (3) Anxiety and depression Code(s): F41.9 - ANXIETY DISORDER, UNSPECIFIED; F32.9 - MAJOR DEPRESSIVE DISORDER, SINGLE EPISODE, UNSPECIFIED Status: Chronic (4) CAD (coronary artery disease) Code(s): I25.10 - ATHSCL HEART DISEASE OF [place] CORONARY ARTERY W/O ANG PCTRS Status: Chronic Qualifiers: Coronary Disease-Associated Artery/Lesion type: [place] artery [place] vs. transplanted heart: [place] heart Associated angina: without angina Qualified Code(s): I25.10 - Atherosclerotic heart disease of [place] coronary artery without angina pectoris (5) COPD (chronic obstructive pulmonary disease) Status: Chronic Qualifiers: Emphysema type: unspecified (6) Hypertension Code(s): I10 - ESSENTIAL (PRIMARY) HYPERTENSION Status: Chronic Qualifiers: Hypertension type: essential hypertension Qualified Code(s): I10 - Essential (primary) hypertension (7) Tobacco abuse Code(s): Z72.0 - TOBACCO USE Status: Chronic - Plan * Continue current management * CABG planned for 09/20/2018 * case and plan d/w patient at length, he understood and agreed with this plan.
--- NOTE | 2018-09-18 16:00 | EKG ---
Test Reason : ER Blood Pressure : / mmHG Vent. Rate : 093 BPM Atrial Rate : 093 BPM P-R Int : 136 ms QRS Dur : 154 ms QT Int : 434 ms P-R-T Axes : 055 -03 124 degrees QTc Int : 539 ms Normal sinus rhythm Left bundle branch block Abnormal ECG Confirmed by FRANKIE SINGER ([id number]), food editor VERONICA SANTAMARIA ([id number]) on 09/18/2018 3:59:44 PM Referred By: ER Confirmed By:FRANKIE SINGER
[2018-09-18] MEDS: Zolpidem Tartrate 5 MG TAB PO SCH (21:19)
[2018-09-18] MEDS: Ezetimibe 10 MG TAB PO SCH (21:19)
[2018-09-18] MEDS: Atorvastatin Calcium 40 MG TAB PO SCH (21:20)
[2018-09-18] MEDS: Tamsulosin HCl 0.4 MG CAP PO SCH (21:20)
[2018-09-19 04:51] LABS: #Eosinphils 0.2 thou/uL (0.0-0.7); #Lymphocytes 1.4 thou/uL (1.20-3.40); #Monocytes 0.9 thou/uL (0.11-0.59); #Neutrophils 3.9 thou/uL (1.40-6.50); %Basophils 0.5 % (0.0-1.0); %Eosinophils 3.8 % (0.0-10.0); %Monocytes 14.3 % (0.0-10.0); %Neutrophils 60.5 % (42.0-75.0); Hemoglobin 8.1 g/dL (14.0-18.0); Mean Corpuscular HGB CONC 31.5 g/dL (32.0-36.0); Mean Corpuscular Hemoglobin 26.3 pg (27.0-31.0); Mean Corpuscular Volume 83.4 fL (78.0-98.0); Mean Platelet Volume 8.2 fL (7.4-10.4); Platelet Count 309 thou/uL (130-400); RBC Distribution Width 17.9 % (11.5-14.5); Red Blood Cell (RBC) Count 3.07 mill/uL (4.70-6.10); White Blood Cell (WBC) Count 6.5 thou/uL (4.8-10.8)
[2018-09-19 05:14] LABS: Anion Gap 12 mmol/L (10-20); BUN (Urea Nitrogen) 16 mg/dL (8.4-25.7); Calc. Creatinine Clearance 71 mL/min (70-130); Calcium 8.4 mg/dL (7.8-10.44); Carbon Dioxide 26 mmol/L (23-31); Chloride 100 mmol/L (98-107); Estimated GFR-MDRD Greater than 90; Glucose 120 mg/dL (83-110); Potassium 3.9 mmol/L (3.5-5.1); Sodium 134 mmol/L (136-145)
[2018-09-19] MEDS: Aspirin 325 MG TAB PO SCH (09:46)
[2018-09-19] MEDS: Carvedilol 6.25 MG TAB PO SCH ×2 (09:46→20:48)
[2018-09-19] MEDS: Ferrous Sulfate 325 MG TAB PO SCH (09:46)
[2018-09-19] MEDS: Citalopram 20 MG TAB PO SCH (09:46)
[2018-09-19] MEDS: Furosemide 40 MG TAB PO SCH (09:47)
[2018-09-19] MEDS: Gabapentin 300 MG CAP PO SCH ×3 (09:47→20:48)
[2018-09-19] MEDS: Lisinopril 5 MG TAB PO SCH (09:47)
[2018-09-19] MEDS: ALPRAZolam 0.25 MG TAB PO PRN ×3 (09:56→20:47)
--- NOTE | 2018-09-19 13:24 | PDOC.PN ---
- Subjective Encounter Start Date: 09/19/18 Encounter Start Time: 13:23 Patient seen and examined - Objective Resuscitation Status - Order Detail: 09/12/18 21:15 Resuscitation Status Routine Resuscitation Status: FULL: Full Resuscitation Vital Signs & Weight: Vital Signs (12 hours) Temp Pulse Resp BP BP BP Pulse Ox 09/19/18 13:02 63 16 09/19/18 11:56 98.8 F 63 18 127/55 L 100 09/19/18 09:47 72 09/19/18 09:46 127/61 09/19/18 07:47 72 16 09/19/18 07:40 96 09/19/18 07:38 98.1 F 72 18 135/60 96 09/19/18 04:00 98.0 F 70 18 119/56 L 96 09/19/18 02:57 88 18 100 Weight Weight 134 lb I&O: 09/18/18 09/19/18 09/20/18 06:59 06:59 06:59 Intake Total 1920 1590 Output Total 1450 1650 Balance 470 -60 Result Diagrams: 09/19/18 04:26 09/19/18 04:26 Phys Exam - Physical Examination Constitutional: NAD HEENT: PERRLA, moist MMs, sclera anicteric Neck: no nodes, no JVD, supple Respiratory: no wheezing, no rales, no rhonchi Cardiovascular: RRR, no significant murmur, no rub Gastrointestinal: soft, non-tender, no distention, positive bowel sounds Musculoskeletal: pulses present, edema present (trace) Dx/Plan (1) Chest pain Code(s): R07.9 - CHEST PAIN, UNSPECIFIED Status: Acute Qualifiers: Chest pain type: unspecified Qualified Code(s): R07.9 - Chest pain, unspecified (2) NSTEMI (non-ST elevated myocardial infarction) Code(s): I21.4 - NON-ST ELEVATION (NSTEMI) MYOCARDIAL INFARCTION Status: Acute (3) Anxiety and depression Code(s): F41.9 - ANXIETY DISORDER, UNSPECIFIED; F32.9 - MAJOR DEPRESSIVE DISORDER, SINGLE EPISODE, UNSPECIFIED Status: Chronic (4) CAD (coronary artery disease) Code(s): I25.10 - ATHSCL HEART DISEASE OF [place] CORONARY ARTERY W/O ANG PCTRS Status: Chronic Qualifiers: Coronary Disease-Associated Artery/Lesion type: [place] artery [place] vs. transplanted heart: [place] heart Associated angina: without angina Qualified Code(s): I25.10 - Atherosclerotic heart disease of [place] coronary artery without angina pectoris (5) COPD (chronic obstructive pulmonary disease) Status: Chronic Qualifiers: Emphysema type: unspecified (6) Hypertension Code(s): I10 - ESSENTIAL (PRIMARY) HYPERTENSION Status: Chronic Qualifiers: Hypertension type: essential hypertension Qualified Code(s): I10 - Essential (primary) hypertension (7) Tobacco abuse Code(s): Z72.0 - TOBACCO USE Status: Chronic - Plan * Continue current management * CABG planned for 09/20/2018 * labs in AM * case and plan d/w patient at length, he understood and agreed with this plan.
[2018-09-19] MEDS: Zolpidem Tartrate 5 MG TAB PO SCH (20:48)
[2018-09-19] MEDS: Atorvastatin Calcium 40 MG TAB PO SCH (20:48)
[2018-09-19] MEDS: Tamsulosin HCl 0.4 MG CAP PO SCH (20:48)
[2018-09-19] MEDS: Ezetimibe 10 MG TAB PO SCH (20:48)
[2018-09-20] MEDS: Carvedilol 6.25 MG TAB PO SCH (05:29)
[2018-09-20] MEDS: Lisinopril 5 MG TAB PO SCH (05:30)
[2018-09-20 05:53] LABS: PTT 29.9 SEC (22.9-36.1); Prothrombin Time 13.7 SEC (12.0-14.7)
[2018-09-20 06:13] LABS: Hemoglobin 8.2 g/dL (14.0-18.0); Hypochromia SLIGHT = 6-15 cells (100X) (0-5/hpf); Lymphocytes 25 % (21-51); MDiff Complete? YES; Mean Corpuscular HGB CONC 29.9 g/dL (32.0-36.0); Mean Corpuscular Hemoglobin 25.2 pg (27.0-31.0); Mean Corpuscular Volume 84.2 fL (78.0-98.0); Mean Platelet Volume 7.9 fL (7.4-10.4); Monocytes 14 % (0-10); Neutrophil 61 % (42-75); Platelet Count 339 thou/uL (130-400); Platelet Morphology Comment Appears Adequate; RBC Distribution Width 18.1 % (11.5-14.5); Red Blood Cell (RBC) Count 3.24 mill/uL (4.70-6.10); White Blood Cell (WBC) Count 7.6 thou/uL (4.8-10.8)
[2018-09-20 06:16] LABS: Anion Gap 13 mmol/L (10-20); BUN (Urea Nitrogen) 14 mg/dL (8.4-25.7); Calc. Creatinine Clearance 66 mL/min (70-130); Calcium 8.5 mg/dL (7.8-10.44); Carbon Dioxide 23 mmol/L (23-31); Chloride 101 mmol/L (98-107); Estimated GFR-MDRD 89; Glucose 89 mg/dL (83-110); Sodium 133 mmol/L (136-145)
[2018-09-20] MEDS ORDERED: CABG-Vancomycin 1 GM in Premix Bag 1 BAG IVPB SCH (06:30)
[2018-09-20] MEDS ORDERED: Midazolam HCl 2 mg/2 ml Vial ONE (06:37)
[2018-09-20] MEDS ORDERED: Fentanyl 100 MCG/2 ML VIAL ONE (06:37)
[2018-09-20] MEDS ORDERED: Dexmedetomidine 200 MCG/2 ML VIAL ONE (06:38)
[2018-09-20] MEDS ORDERED: Vecuronium 10 MG VIAL ONE ×2 (06:38→16:52)
[2018-09-20] MEDS ORDERED: Midazolam HCl 5 mg/5 ml Vial ONE (06:38)
[2018-09-20] MEDS ORDERED: Albumin 5% 500 ML ONE (06:41)
[2018-09-20] MEDS ORDERED: Heparin 10,000 UNITS/1 ML VIAL 30,000 UNITS in Sodium Chloride 0.9% 1,000 ML FS SCH (07:00)
--- NOTE | 2018-09-20 09:10 | PDOC.PN ---
- Subjective Encounter Start Date: 09/20/18 Encounter Start Time: 20:00 Subjective: Patient doing well postop. No complaints, just thirsty. - Objective Resuscitation Status - Order Detail: 09/12/18 21:15 Resuscitation Status Routine Resuscitation Status: FULL: Full Resuscitation MAR Reviewed: Yes Vital Signs & Weight: Vital Signs (12 hours) Temp Pulse Resp BP BP Pulse Ox 09/20/18 05:30 71 120/57 L 09/20/18 05:29 120/57 L 09/20/18 04:00 97.8 F 71 20 120/57 L 95 09/19/18 23:09 76 12 Weight Weight 128 lb 14.4 oz I&O: 09/19/18 09/20/18 09/21/18 06:59 06:59 06:59 Intake Total 1590 1430 Output Total 1650 4085 Balance -60 -7835 Result Diagrams: 09/21/18 04:13 09/21/18 04:13 Phys Exam - Physical Examination Constitutional: NAD HEENT: moist MMs Respiratory: no wheezing, no rales, no rhonchi Cardiovascular: RRR, no significant murmur sternotomy wound with dressing c/d/i Gastrointestinal: soft, non-tender, positive bowel sounds Musculoskeletal: no edema Neurological: non-focal, moves all 4 limbs Psychiatric: normal affect, A&O x 3 Dx/Plan (1) NSTEMI (non-ST elevated myocardial infarction) Code(s): I21.4 - NON-ST ELEVATION (NSTEMI) MYOCARDIAL INFARCTION Status: Acute (2) CAD (coronary artery disease) Code(s): I25.10 - ATHSCL HEART DISEASE OF [place] CORONARY ARTERY W/O ANG PCTRS Status: Chronic Qualifiers: Coronary Disease-Associated Artery/Lesion type: [place] artery [place] vs. transplanted heart: [place] heart Comment: Cath with 3-vessel CAD, CABG 09/20/2018 (3) Anxiety and depression Code(s): F41.9 - ANXIETY DISORDER, UNSPECIFIED; F32.9 - MAJOR DEPRESSIVE DISORDER, SINGLE EPISODE, UNSPECIFIED Status: Chronic (4) COPD (chronic obstructive pulmonary disease) Status: Chronic Qualifiers: Emphysema type: unspecified (5) Hypertension Code(s): I10 - ESSENTIAL (PRIMARY) HYPERTENSION Status: Chronic Qualifiers: Hypertension type: essential hypertension Qualified Code(s): I10 - Essential (primary) hypertension (6) Tobacco abuse Code(s): Z72.0 - TOBACCO USE Status: Chronic (7) PVD (peripheral vascular disease) Code(s): I73.9 - PERIPHERAL VASCULAR DISEASE, UNSPECIFIED Status: Chronic - Plan cont current plan of care * . - Discharge Day Encounter end time: 20:10
[2018-09-20] MEDS ORDERED: Bupivacaine HCl 0.5%/Epinephrine 1:200,000/PF 30 ml Vial ONE (10:07)
[2018-09-20] MEDS ORDERED: Dexamethasone 4 mg/ml Vial ONE (10:07)
[2018-09-20] MEDS ORDERED: Hetastarch 6% 500 ML 500 ML IVPB PRN (10:10)
[2018-09-20] MEDS ORDERED: Ondansetron PF 4 MG/2 ML Vial IVP PRN (10:10)
[2018-09-20] MEDS ORDERED: Post-Op Insulin Drip Protocol IVPB ONE (10:10)
[2018-09-20] MEDS ORDERED: Bisacodyl 10 MG SUPP PR PRN (10:10)
[2018-09-20] MEDS ORDERED: Acetaminophen 325 MG TAB PO PRN (10:10)
[2018-09-20] MEDS ORDERED: Bisacodyl 5 MG TAB PO PRN (10:10)
[2018-09-20] MEDS ORDERED: hydrALAZINE 20 MG/ML VIAL SLOW IVP PRN (10:10)
[2018-09-20] MEDS ORDERED: Guaifenesin DM 100-10/5 ML UDCUP PO PRN (10:10)
[2018-09-20] MEDS ORDERED: Promethazine HCl 25 MG/ML VIAL IM PRN (10:10)
[2018-09-20] MEDS ORDERED: Nitroglycerin 50 MG/250 ML BOT 250 ML IVPB PRN (10:10)
[2018-09-20] MEDS ORDERED: Mag-Al 1200 mg/1200 mg/30 ML UDCUP PO PRN (10:10)
[2018-09-20] MEDS ORDERED: Fentanyl 100 MCG/2 ML VIAL SLOW IVP PRN ×2 (10:10)
[2018-09-20] MEDS ORDERED: Benzonatate 100 MG CAP PO PRN (10:10)
[2018-09-20] MEDS ORDERED: Norepinephrine 8 MG/0.9% NS 250 ML IVPB PRN (10:10)
[2018-09-20] MEDS ORDERED: PHENYLEPHRINE-NS 100 MCG/ML 10 ML SYRINGE ONE ×3 (10:12→16:52)
[2018-09-20] MEDS: Aspirin 325 MG TAB PO SCH (10:19)
[2018-09-20] MEDS: Ferrous Sulfate 325 MG TAB PO SCH (10:19)
[2018-09-20] MEDS: Citalopram 20 MG TAB PO SCH (10:19)
[2018-09-20] MEDS: Gabapentin 300 MG CAP PO SCH (10:20)
[2018-09-20] MEDS ORDERED: Dextrose 5% in Water 1,000 ML IV PRN (11:03)
[2018-09-20] MEDS ORDERED: Dextrose 50% Abboject 50 ML SYRINGE SLOW IVP PRN (11:03)
[2018-09-20] MEDS ORDERED: HUMULIN R 100 UNITS in Sodium Chloride 0.9% 100 ML IVPB SCH (11:03)
[2018-09-20] MEDS ORDERED: Insulin Regular 300 UNITS/3 ML VIAL ONE (11:27)
[2018-09-20] MEDS ORDERED: Albumin 25% 100 ML ONE (12:06)
[2018-09-20 13:56] LABS: Actual Bicarbonate (HCO3a) 26.5 mEq/L (22-28); Base Excess (BEa) -0.2 mEq/L (-2.0 to +3.0); CO2 Tension 53.8 mmHg (35.0-45.0); Calcium, Ionized 1.22 mmol/L (1.12-1.30); Carboxyhemoglobin (COHb) 0.8 gm% (0.0-3.0); Hemoglobin (Hb) 9.6 g/dL (14.0-18.0); O2 Tension (PaO2) 130.1 mmHg (> 70.0); Potassium - ABG Lab 3.24 mmol/L (3.70-5.30); pH, Arterial 7.31 (7.35-7.45)
[2018-09-20] MEDS: Ketorolac Tromethamine 30 MG/ML VIAL IVP SCH ×2 (13:56→17:49)
[2018-09-20] MEDS: Sodium Chloride 0.9% 1,000 ML IV SCH (13:56)
[2018-09-20 13:59] LABS: Puncture Site ALINE
[2018-09-20 14:00] LABS: Hemoglobin 8.7 g/dL (14.0-18.0)
[2018-09-20 14:05] LABS: #Basophils 0.1 thou/uL (0.0-0.2); #Eosinphils 0.1 thou/uL (0.0-0.7); #Lymphocytes 0.7 thou/uL (1.20-3.40); #Neutrophils 9.7 thou/uL (1.40-6.50); %Basophils 0.9 % (0.0-1.0); %Eosinophils 0.5 % (0.0-10.0); %Lymphocytes 5.8 % (21.0-51.0); %Neutrophils 83.8 % (42.0-75.0); Hemoglobin 8.6 g/dL (14.0-18.0); INR-International Normal Ratio 1.3; Mean Corpuscular HGB CONC 31.1 g/dL (32.0-36.0); Mean Corpuscular Hemoglobin 26.8 pg (27.0-31.0); Mean Corpuscular Volume 86.1 fL (78.0-98.0); Mean Platelet Volume 7.9 fL (7.4-10.4); Platelet Count 153 thou/uL (130-400); Prothrombin Time 16.4 SEC (12.0-14.7); Red Blood Cell (RBC) Count 3.21 mill/uL (4.70-6.10); White Blood Cell (WBC) Count 11.6 thou/uL (4.8-10.8)
[2018-09-20 14:10] LABS: Potassium 3.3 mmol/L (3.5-5.1)
[2018-09-20 14:17] LABS: Anion Gap 3 mmol/L (10-20); BUN (Urea Nitrogen) 13 mg/dL (8.4-25.7); Calc. Creatinine Clearance 76 mL/min (70-130); Calcium 9.2 mg/dL (7.8-10.44); Carbon Dioxide 26 mmol/L (23-31); Chloride 108 mmol/L (98-107); Estimated GFR-MDRD Greater than 90; Glucose 81 mg/dL (83-110); Potassium 3.3 mmol/L (3.5-5.1); Sodium 134 mmol/L (136-145)
--- NOTE | 2018-09-20 14:18 | STRESS ---
Acquisition Time: 2018-09-13 10:46:55 Total Exercise Time: 00:01:00 Test Indications: CHEST PAIN Medications: Protocol: LEXISCAN Max HR: 126 BPM 84% of Pred: 149 BPM Max BP: 172/048 mmHG Max Work Load: 1.0 METS RESTING ECG: NORMAL SINUS RHYTHM AT 100 BPM WITH COMPLETE LEFT BUNDLE BRANCH BLOCK SYMPTOMS: DYSPNEA AND WARM NORMAL BP RESPONSE ECTOPY: NONE ECG STRESS: NO SIGNIFICANT CHANGES INTERPRETATION: AWAIT NUCLEAR IMAGES FOR DEFINITIVE DIAGNOSIS Confirmed by KARTHIKEYAN MONAE ([id number]), tape editor SHERRIE OLSON ([id number]) on 09/20/2018 2:17:29 PM Referred By: MD [facility] Confirmed By:KARTHIKEYAN MONAE
[2018-09-20] MEDS: Potassium Chloride 20 MEQ/100 ML PREMIX BAG IVPB PRN (14:49)
[2018-09-20] MEDS ORDERED: HEXTEND 6% LR 500ML 500 ML IVPB PRN (15:16)
--- NOTE | 2018-09-20 15:42 | RAD ---
PORTABLE CHEST: DATE: 09/20/2018. PROVIDED CLINICAL HISTORY: Post open heart. FINDINGS: Comparison 09/12/2018. Cardiac and mediastinal silhouette are unchanged in appearance. Vascular calci fications involves the aortic arch. Interval median sternotomy changes. Endotracheal tube is noted, the tip of which projects in the expected location of the thoracic inlet. Left subclavian central c anal is noted, the tip overlying the expected location of SVC. Mediastinal drains are noted. Cardia c stent material is again seen. No focal consolidation is evident. The supine nature of the study l imits evaluation for detection of pleural fluid and pneumothorax. IMPRESSION: Interval postoperative change as above. POS: TPC
--- NOTE | 2018-09-20 15:57 | OP ---
DATE OF PROCEDURE: 09/20/2018 PROCEDURES PERFORMED: Coronary artery bypass grafting x2 with left internal mammary artery to the distal left anterior descending and reverse greater saphenous vein graft from the aorta to the circumflex and posterior descending artery. PREOPERATIVE DIAGNOSES: Coronary artery disease, status post non-ST elevation myocardial infarction; chronic obstructive pulmonary disease; peripheral vascular disease; and cerebrovascular disease. POSTOPERATIVE DIAGNOSES: Coronary artery disease, status post non-ST elevation myocardial infarction; chronic obstructive pulmonary disease; peripheral vascular disease; and cerebrovascular disease. 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 ANESTHESIA: General endotracheal anesthesia. INDICATIONS: The patient is a 73-year-old inveterate smoker with a long history of known coronary, peripheral vascular, and cerebrovascular disease, having undergone multiple coronary stenting procedures, staged bilateral carotid endarterectomies, and an aortobifemoral bypass. He presented with an unstable pattern of angina, culminating in a severe episode prompting presentation to the emergency room. He had a mild rise and fall in his troponin consistent with a non-ST elevation myocardial infarction. Cardiac catheterization demonstrated occlusion of the groove circumflex that had previously been stented just beyond a large minimally diseased OM1. He also had a modest focal stenosis of a large LAD that by FFR proved to be hemodynamically significant. He had mildly decreased LV function, which was a significant improvement from his LV function about 2 years ago. After giving time for his Plavix to wear off, he is now taken to the operating room for revascularization. FINDINGS: Pump time 53 minutes. Cross-clamp time 24 minutes. Good quality DOC and saphenous vein. The LAD was about a 2 to 2.5 mm good quality vessel. The circumflex and PDA was about a 1.5 mm good quality vessel. The posterolateral obtuse marginal was about 1 mm good quality vessel, that was not grafted. The pericardium was closed. NARRATIVE REPORT: After informed consent was obtained, the patient was taken to the operating room, placed in supine position on the operating table. After the induction of general endotracheal anesthesia, ultrasonographic mapping of his greater saphenous vein in the left thigh was performed because the patient had a normocytic anemia and over the weekend, had gone into urinary retention. A rectal exam was then performed. The vault was empty. No masses were appreciated. The prostate was not just especially enlarged, but was rather firm, but smooth. Dark stool consistent with his known iron therapy was sampled for stool guaiac, sending it to the lab. The patient's left upper chest was then prepped and draped in sterile fashion. The patient was placed in Trendelenburg and by the Seldinger technique, a triple-lumen central line kit was used to place a left subclavian line. All 3 ports easily aspirated and flushed. The line was secured. The patient's torso, groins, and lower extremities were then prepped and draped in sterile fashion. A median sternotomy was performed. Pericardium was opened. The aorta was palpated and was soft. The heart was elevated to examine the PDA and posterolateral distributions, though small target distal circumflex vessels were identified and appeared to be reasonable candidate for grafting. The heart was returned to its anatomic position. The patient having tolerated that brief maneuver without difficulty. The saphenous vein was exposed and harvested through a skin bridge technique from the left thigh and was prepared for use as a graft. The harvest sites were closed in layers of subcutaneous and subcuticular Vicryl. The left internal mammary artery was harvested as a skeletonized in-situ graft from the level of the xiphoid to the level of the subclavian vein through an extrapleural exposure. The patient was heparinized. The mammary was ligated and divided distally. There was good flow through the mammary, which was then instilled intraluminally with papaverine solution. The mammary bed was inspected for hemostasis. The DOC retractor was replaced with a Jacobsen retractor. The pericardium was marsupialized and the aorta was again palpated. A double concentric pursestring of 2-0 Ethibond was placed in ascending aorta just beyond the pericardial reflection and a single pursestring was placed in the right atrial appendage. With ACT in excess of 500 seconds, aortic and venous cannulae were inserted and secured by the pursestrings. Cardiopulmonary bypass was instituted and the patient was systemically cooled. The heart was examined again. The plane between the aorta and the pulmonary artery was developed. A longitudinal slit was made in the pericardium anterior to the left phrenic nerve through which the mammary could be passed after mobilizing the hilar reflections of the left pleura. An aortic cross-clamp was applied and cardioplegia was administered through an aortic root needle. When arrest was achieved, attention was turned to the distal circumflex system. The PDA was the larger of the 2 vessels. It was exposed and opened near where emerge from the epicardial fat pad at the AV groove. Reverse greater saphenous vein was anastomosed there end-to-side with running Prolene suture successfully passing a 1 mm probe proximally through the heeled anastomosis and distally through the toe. The anastomosis was secured and then tested by flushing cold saline down the graft. The LAD was then opened. The mammary was anastomosed with running 7-0 Prolene and tacked to the epicardium. Aortic cross-clamp was placed in the partial occluding clamp. Upon the performance of this maneuver, I could then be appreciated a small firm plaque that was entirely encompassed by the portion of the aorta excluded by the clamp was present. The root needle site was a few millimeters from that plaque. An aortotomy was made, incorporating the root needle site extending toward the right away from that plaque and a punch was used to expand the aortotomy. The vein graft was then trimmed to length and spatulated and anastomosed there end-to-side with running Prolene. The partial occluding clamp was removed and the vein graft was de-aired. The anastomoses were inspected for hemostasis. A posterior pericardial drain was brought out through a separate incision and secured with suture. Right atrial and right ventricular temporary epicardial pacing wires were placed. At that point, the patient only had an occasional escape beat and AV sequential pacing was commenced. The patient was then easily from cardiopulmonary bypass. Aortic and venous cannulae were removed and the pursestring secured. Protamine was administered. When hemostasis appeared to be adequate, an anterior mediastinal drain was placed and the pericardium was easily closed over with running Vicryl. During this process, there was a gradual welling up of blood within the pericardium. The pericardium was inspected multiple times with no site of bleeding clearly identified under the presumption that this represented a rundown preparations for sternal closure were undertaken. The cut surfaces of the sternum were treated with vancomycin paste and platelet rich GPS. It was then reapproximated with a combination #7 stainless steel wires in a simple and [id number] fashion. Platelet poor GPS was applied to the soft tissues and the midline fascia closure was initiated starting at the apex. Inspection of the pericardial well through the subxiphoid approach still showed repeated welling up of blood. Multiple attempts at identifying the source were undertaken with this most suspect site being the vein graft to the PDA and its anastomosis. After multiple attempts to identify any ongoing bleeding and repeated experiences with appearing to evacuate the pericardium and then blood not recur only to realize a few minutes later that the blood had reaccumulated. The wires were removed and reinspection for hemostasis was undertaken. The cut edges were hemostatic, but some venous bleeding from the mammary bed at the level of the manubrium were a little bit above was identified. This was controlled with clips and the electrocautery. The pericardium was then opened and a small amount of blood evacuated. The cannulation sites and pacing wire sites appeared to be hemostatic as did the 3 anastomoses and the mammary itself upon inspecting the vein graft after teasing a clock off it, a relatively large branch that was dribbling blood was identified. It was doubly ligated with a silk suture and hemoclip controlling it. Ongoing observation and inspection were undertaken. The mediastinal tubes were cleared of blood by flushing them with irrigant. Then, the pericardium was reclosed. No apparent reaccumulation of blood was identified. The sternum was reapproximated again with a fresh set of simple and [id number] wires and the fascia was reapproximated prior to closing the epigastric apex. Pericardium was again reinspected with no reaccumulation of blood noted. The subcu was reapproximated with running Vicryl and the skin closed with Vicryl subcuticular stitch. The wounds were dressed and the patient was taken to the intensive care unit in stable condition. Job ID: [id number]
[2018-09-20] MEDS ORDERED: Papaverine 60 MG/2 ML VIAL ONE (16:52)
[2018-09-20] MEDS ORDERED: Calcium Chloride 1 GM/10 ML Abboject SYRINGE ONE (16:52)
[2018-09-20] MEDS ORDERED: Thrombin 5000 UNITS/5 ML VIAL ONE (16:52)
[2018-09-20] MEDS ORDERED: EPINEPHrine 1 MG/ML AMP ONE (16:52)
[2018-09-20] MEDS ORDERED: DOPamine 400 MG/10 ML VIAL ONE (16:52)
[2018-09-20] MEDS ORDERED: Sodium Bicarb 50 MEQ/50 ML VIAL ONE (16:52)
[2018-09-20] MEDS ORDERED: Albumin 25% 25 GM/100 ML BOT ONE (16:52)
[2018-09-20] MEDS ORDERED: Heparin 5,000 UNITS/ML VIAL ONE (16:52)
[2018-09-20] MEDS ORDERED: Protamine Sulfate 250 MG/25 ML VIAL ONE (16:52)
[2018-09-20] MEDS ORDERED: Potassium Chloride 60 MEQ/30 ML VIAL ONE (16:52)
[2018-09-20] MEDS ORDERED: Aminocaproic Acid 5 GM/20 ML VIAL ONE (16:52)
[2018-09-20] MEDS ORDERED: Nitroglycerin 50 MG/250 ML BOT ONE (16:52)
[2018-09-20] MEDS ORDERED: Mannitol 12.5 GM/50 ML ONE (16:52)
[2018-09-20] MEDS ORDERED: Lidocaine 2% PF 100 mg/5 ml Syringe ONE (16:52)
[2018-09-20] MEDS ORDERED: Norepinephrine 4 MG/4 ML VIAL ONE (16:52)
[2018-09-20] MEDS ORDERED: Magnesium 5 GM/10 ML VIAL ONE (16:52)
[2018-09-20] MEDS ORDERED: Dextrose 50% Abboject 50 ML SYRINGE ONE (16:52)
[2018-09-20] MEDS ORDERED: Heparin 30,000 units/30 ml VIAL ONE (16:52)
[2018-09-20 17:36] LABS: Actual Bicarbonate (HCO3a) 24.8 mEq/L (22-28); Base Excess (BEa) 1.4 mEq/L (-2.0 to +3.0); CO2 Tension 33.6 mmHg (35.0-45.0); Calcium, Ionized 1.17 mmol/L (1.12-1.30); Carboxyhemoglobin (COHb) 1.1 gm% (0.0-3.0); Hemoglobin (Hb) 7.7 g/dL (14.0-18.0); O2 Tension (PaO2) 194.5 mmHg (> 70.0); Potassium - ABG Lab 3.69 mmol/L (3.70-5.30); pH, Arterial 7.49 (7.35-7.45)
[2018-09-20 17:41] LABS: Puncture Site ALINE
[2018-09-20] MEDS: Furosemide 40 MG TAB PO SCH (19:17)
[2018-09-20] MEDS ORDERED: Famotidine/PF 20 mg/2ml Vial SLOW IVP SCH (21:00)
[2018-09-20] MEDS: Docusate 100 MG CAP PO SCH (21:05)
[2018-09-20] MEDS: Insulin Regular 300 UNITS/3 ML VIAL SC PRN (21:08)
[2018-09-20] MEDS: HYDROcodone/Acetaminophen 5/325 mg Tablet PO PRN (22:40)
[2018-09-21] MEDS: Sodium Chloride 0.9% 1,000 ML IV SCH (00:01)
[2018-09-21 04:19] LABS: #Lymphocytes 0.9 thou/uL (1.20-3.40); #Monocytes 1.4 thou/uL (0.11-0.59); #Neutrophils 9.9 thou/uL (1.40-6.50); %Basophils 0.1 % (0.0-1.0); %Monocytes 11.6 % (0.0-10.0); %Neutrophils 81.2 % (42.0-75.0); Hemoglobin 6.8 g/dL (14.0-18.0); Mean Corpuscular HGB CONC 31.6 g/dL (32.0-36.0); Mean Corpuscular Hemoglobin 27.4 pg (27.0-31.0); Mean Corpuscular Volume 86.7 fL (78.0-98.0); Mean Platelet Volume 8.3 fL (7.4-10.4); Platelet Count 148 thou/uL (130-400); RBC Distribution Width 15.8 % (11.5-14.5); White Blood Cell (WBC) Count 12.2 thou/uL (4.8-10.8)
[2018-09-21 04:43] LABS: Anion Gap 10 mmol/L (10-20); BUN (Urea Nitrogen) 21 mg/dL (8.4-25.7); Calc. Creatinine Clearance 71 mL/min (70-130); Calcium 8.2 mg/dL (7.8-10.44); Carbon Dioxide 25 mmol/L (23-31); Chloride 107 mmol/L (98-107); Estimated GFR-MDRD Greater than 90; Glucose 106 mg/dL (83-110); Sodium 138 mmol/L (136-145)
[2018-09-21] MEDS: Potassium Chloride 20 MEQ/100 ML PREMIX BAG IVPB PRN (05:16)
[2018-09-21] MEDS: Ketorolac Tromethamine 30 MG/ML VIAL IVP SCH ×2 (05:16)
[2018-09-21] MEDS: Insulin Regular 300 UNITS/3 ML VIAL SC PRN (05:20)
[2018-09-21] MEDS: HYDROcodone/Acetaminophen 5/325 mg Tablet PO PRN ×2 (05:20→15:50)
[2018-09-21] MEDS ORDERED: Nitroglycerin 0.4 MG TAB (25 Tab Bottle) SL PRN (08:16)
[2018-09-21] MEDS ORDERED: Mag-Al 1200 mg/1200 mg/30 ML UDCUP PO PRN (08:16)
[2018-09-21] MEDS ORDERED: Bisacodyl 10 MG SUPP PR PRN (08:16)
[2018-09-21] MEDS ORDERED: diphenhydrAMINE 25 MG CAP PO PRN (08:16)
[2018-09-21] MEDS ORDERED: Bisacodyl 5 MG TAB PO PRN (08:16)
[2018-09-21] MEDS ORDERED: Guaifenesin DM 100-10/5 ML UDCUP PO PRN (08:16)
[2018-09-21] MEDS ORDERED: Artificial Tears 18 DROP/0.9 ML EA EYE PRN (08:16)
[2018-09-21] MEDS ORDERED: Mineral Oil ENEMA PR PRN (08:16)
--- NOTE | 2018-09-21 08:24 | RAD ---
CHEST ONE VIEW: History: Chest surgery. Follow up. Comparison: 09-20-18 FINDINGS: Cardiac silhouette is magnified by projection. Pulmonary vasculature within normal limits. Mediastinu m is midline with post-operative changes and aortic calcification. Endotracheal catheter no longer vi sible. Mediastinal drains remain in place. Left subclavian central venous catheter unchanged. Old bharat ateral rib fractures. IMPRESSION: Interval extubation. Otherwise stable post-operative appearance of the chest. POS: TPC
[2018-09-21] MEDS: Docusate 100 MG CAP PO SCH ×2 (08:53→20:40)
[2018-09-21] MEDS: Aspirin 325 mg Enteric Coated Tablet PO SCH (08:53)
[2018-09-21] MEDS: Famotidine 20 MG TAB PO SCH ×2 (08:53→20:39)
[2018-09-21] MEDS: Finasteride 5 MG TAB PO SCH (08:53)
--- NOTE | 2018-09-21 08:58 | PDOC.PN ---
- Subjective Encounter Start Date: 09/21/18 Encounter Start Time: 12:00 Subjective: Some chest wall pain with coughing. No other complaints. -: Did well overnight. - Objective Resuscitation Status - Order Detail: 09/12/18 21:15 Resuscitation Status Routine Resuscitation Status: FULL: Full Resuscitation MAR Reviewed: Yes Vital Signs & Weight: Vital Signs (12 hours) Temp Pulse Resp BP Pulse Ox 09/21/18 08:00 98.1 F 97 09/21/18 07:08 98.0 F 72 18 120/65 99 09/21/18 07:06 98.8 F 73 21 H 125/66 97 09/21/18 07:00 98 F 09/21/18 05:41 98.9 F 76 28 H 116/57 L 99 09/21/18 04:00 98.7 F 09/21/18 00:00 98.2 F Weight Weight 140 lb 6.951 oz Most Recent Monitor Data Heart Rate from ECG 72 NIBP 120/58 NIBP BP-Mean 78 Respiration from ECG 19 SpO2 96 I&O: 09/20/18 09/21/18 09/22/18 06:59 06:59 06:59 Intake Total 1430 2366 480 Output Total 4085 1605 85 Balance -2655 761 395 Result Diagrams: 09/21/18 04:13 09/21/18 04:13 Additional Labs: Accuchecks 09/21/18 09/21/18 09/21/18 08:21 04:11 00:00 POC Glucose 93 124 H 117 H 09/20/18 09/20/18 09/20/18 20:10 16:01 15:22 POC Glucose 136 H 85 48 L* 09/20/18 09/20/18 09/20/18 13:42 13:04 12:40 POC Glucose 108 92 163 H 09/20/18 09/20/18 09/20/18 12:30 11:38 10:36 POC Glucose 72 150 H 173 H Phys Exam - Physical Examination Constitutional: NAD HEENT: moist MMs Respiratory: no wheezing, no rales, no rhonchi sternotomy site with dressing c/d/i Cardiovascular: RRR, no significant murmur Musculoskeletal: no edema Neurological: non-focal, moves all 4 limbs Psychiatric: normal affect, A&O x 3 Dx/Plan (1) NSTEMI (non-ST elevated myocardial infarction) Code(s): I21.4 - NON-ST ELEVATION (NSTEMI) MYOCARDIAL INFARCTION Status: Acute (2) CAD (coronary artery disease) Code(s): I25.10 - ATHSCL HEART DISEASE OF [place] CORONARY ARTERY W/O ANG PCTRS Status: Chronic Qualifiers: Coronary Disease-Associated Artery/Lesion type: [place] artery [place] vs. transplanted heart: [place] heart Comment: Cath with 3-vessel CAD, 2-vessel CABG 09/20/2018 (3) Anxiety and depression Code(s): F41.9 - ANXIETY DISORDER, UNSPECIFIED; F32.9 - MAJOR DEPRESSIVE DISORDER, SINGLE EPISODE, UNSPECIFIED Status: Chronic (4) COPD (chronic obstructive pulmonary disease) Status: Chronic Qualifiers: Emphysema type: unspecified (5) Hypertension Code(s): I10 - ESSENTIAL (PRIMARY) HYPERTENSION Status: Chronic Qualifiers: Hypertension type: essential hypertension Qualified Code(s): I10 - Essential (primary) hypertension (6) Tobacco abuse Code(s): Z72.0 - TOBACCO USE Status: Chronic (7) PVD (peripheral vascular disease) Code(s): I73.9 - PERIPHERAL VASCULAR DISEASE, UNSPECIFIED Status: Chronic - Plan cont current plan of care, PT/OT doing well postop * . - Discharge Day Encounter end time: 12:10
[2018-09-21] MEDS ORDERED: Aspirin 325 MG TAB PO SCH (09:00)
[2018-09-21 13:39] LABS: Actual Bicarbonate (HCO3a) 23.1 mEq/L (22-28); Analyzer IN Cardio OR; Base Excess (BEa) -1.1 mEq/L (-2.0 to +3.0); Calcium, Ionized 1.07 mmol/L (1.12-1.30); Carboxyhemoglobin (COHb) 1.2 gm% (0.0-3.0); Hemoglobin (Hb) 7.9 g/dL (14.0-18.0); O2 Tension (PaO2) 398.9 mmHg (> 70.0); Potassium - ABG Lab 3.78 mmol/L (3.70-5.30); pH, Arterial 7.43 (7.35-7.45)
[2018-09-21 13:39] LABS: Actual Bicarbonate (HCO3a) 25.5 mEq/L (22-28); Analyzer IN Cardio OR; CO2 Tension 35.1 mmHg (35.0-45.0); Calcium, Ionized 1.08 mmol/L (1.12-1.30); Hemoglobin (Hb) 8.4 g/dL (14.0-18.0); O2 Tension (PaO2) 400.4 mmHg (> 70.0); Potassium - ABG Lab 4.11 mmol/L (3.70-5.30); pH, Arterial 7.48 (7.35-7.45)
[2018-09-21 13:40] LABS: Actual Bicarbonate (HCO3a) 21.6 mEq/L (22-28); Analyzer IN Cardio OR; Base Excess (BEa) -5.1 mEq/L (-2.0 to +3.0); CO2 Tension 47.5 mmHg (35.0-45.0); Calcium, Ionized 1.31 mmol/L (1.12-1.30); Carboxyhemoglobin (COHb) 0.1 gm% (0.0-3.0); Hemoglobin (Hb) 10.4 g/dL (14.0-18.0); O2 Tension (PaO2) 465.8 mmHg (> 70.0); Potassium - ABG Lab 3.38 mmol/L (3.70-5.30); pH, Arterial 7.28 (7.35-7.45)
[2018-09-21 13:41] LABS: Actual Bicarbonate (HCO3a) 24.1 mEq/L (22-28); Analyzer IN Cardio OR; Base Excess (BEa) 0.5 mEq/L (-2.0 to +3.0); CO2 Tension 33.3 mmHg (35.0-45.0); Calcium, Ionized 0.94 mmol/L (1.12-1.30); Hemoglobin (Hb) 6.6 g/dL (14.0-18.0); pH, Arterial 7.48 (7.35-7.45)
[2018-09-21 13:42] LABS: Actual Bicarbonate (HCO3a) 22.2 mEq/L (22-28); Analyzer IN Cardio OR; Base Excess (BEa) -1.7 mEq/L (-2.0 to +3.0); CO2 Tension 33.6 mmHg (35.0-45.0); Calcium, Ionized 1.23 mmol/L (1.12-1.30); Carboxyhemoglobin (COHb) 0.7 gm% (0.0-3.0); Hemoglobin (Hb) 7.6 g/dL (14.0-18.0); O2 Tension (PaO2) 468.2 mmHg (> 70.0); Potassium - ABG Lab 5.17 mmol/L (3.70-5.30); pH, Arterial 7.44 (7.35-7.45)
[2018-09-21 13:42] LABS: Actual Bicarbonate (HCO3a) 24.2 mEq/L (22-28); Analyzer IN Cardio OR; Base Excess (BEa) 0.2 mEq/L (-2.0 to +3.0); CO2 Tension 36.1 mmHg (35.0-45.0); Calcium, Ionized 0.95 mmol/L (1.12-1.30); Carboxyhemoglobin (COHb) 0.7 gm% (0.0-3.0); Hemoglobin (Hb) 7.7 g/dL (14.0-18.0); O2 Tension (PaO2) 436.7 mmHg (> 70.0); Potassium - ABG Lab 4.78 mmol/L (3.70-5.30); pH, Arterial 7.44 (7.35-7.45)
[2018-09-21 13:43] LABS: Actual Bicarbonate (HCO3a) 22.2 mEq/L (22-28); Analyzer IN Cardio OR; Base Excess (BEa) -2.6 mEq/L (-2.0 to +3.0); CO2 Tension 38.2 mmHg (35.0-45.0); Calcium, Ionized 1.17 mmol/L (1.12-1.30); Carboxyhemoglobin (COHb) 0.2 gm% (0.0-3.0); Hemoglobin (Hb) 9.3 g/dL (14.0-18.0); O2 Tension (PaO2) 480.6 mmHg (> 70.0); Potassium - ABG Lab 3.82 mmol/L (3.70-5.30); pH, Arterial 7.38 (7.35-7.45)
[2018-09-21 13:43] LABS: Actual Bicarbonate (HCO3a) 20.3 mEq/L (22-28); Analyzer IN Cardio OR; Base Excess (BEa) -6.9 mEq/L (-2.0 to +3.0); CO2 Tension 47.8 mmHg (35.0-45.0); Calcium, Ionized 1.42 mmol/L (1.12-1.30); Carboxyhemoglobin (COHb) 0.5 gm% (0.0-3.0); Hemoglobin (Hb) 11.3 g/dL (14.0-18.0); O2 Tension (PaO2) 467.9 mmHg (> 70.0); Potassium - ABG Lab 3.55 mmol/L (3.70-5.30)
[2018-09-21 13:43] LABS: Actual Bicarbonate (HCO3a) 22.3 mEq/L (22-28); Analyzer IN Cardio OR; Base Excess (BEa) -2.5 mEq/L (-2.0 to +3.0); CO2 Tension 38.5 mmHg (35.0-45.0); Calcium, Ionized 1.23 mmol/L (1.12-1.30); Carboxyhemoglobin (COHb) 0.9 gm% (0.0-3.0); Hemoglobin (Hb) 8.1 g/dL (14.0-18.0); O2 Tension (PaO2) 448.8 mmHg (> 70.0); Potassium - ABG Lab 4.09 mmol/L (3.70-5.30); pH, Arterial 7.38 (7.35-7.45)
[2018-09-21 13:53] LABS: Actual Bicarbonate (HCO3a) 23.7 mEq/L (22-28); Analyzer IN Cardio OR; Base Excess (BEa) -2.9 mEq/L (-2.0 to +3.0); CO2 Tension 49.9 mmHg (35.0-45.0); Calcium, Ionized 1.28 mmol/L (1.12-1.30); Carboxyhemoglobin (COHb) 0.2 gm% (0.0-3.0); Hemoglobin (Hb) 10.1 g/dL (14.0-18.0); O2 Tension (PaO2) 468.3 mmHg (> 70.0); Potassium - ABG Lab 3.16 mmol/L (3.70-5.30)
[2018-09-21 13:53] LABS: Puncture Site ALINE
[2018-09-21 13:54] LABS: Puncture Site ALINE
[2018-09-21 13:55] LABS: Puncture Site ALINE; pH, Arterial 7.25 (7.35-7.45)
[2018-09-21 13:55] LABS: Puncture Site ALINE
[2018-09-21 13:56] LABS: Puncture Site ALINE
[2018-09-21 13:56] LABS: Puncture Site ALINE
[2018-09-21 14:03] LABS: Puncture Site ALINE
[2018-09-21 14:05] LABS: Puncture Site ALINE
[2018-09-21 14:07] LABS: Puncture Site ALINE
[2018-09-21 14:07] LABS: Puncture Site ALINE
[2018-09-21] MEDS: Atorvastatin Calcium 40 MG TAB PO SCH (20:40)
[2018-09-21] MEDS: Zolpidem Tartrate 5 MG TAB PO PRN (20:41)
[2018-09-22 05:26] LABS: #Eosinphils 0.1 thou/uL (0.0-0.7); #Lymphocytes 1.3 thou/uL (1.20-3.40); #Monocytes 1.7 thou/uL (0.11-0.59); #Neutrophils 12.5 thou/uL (1.40-6.50); %Basophils 0.1 % (0.0-1.0); %Eosinophils 0.4 % (0.0-10.0); %Lymphocytes 8.6 % (21.0-51.0); %Neutrophils 79.9 % (42.0-75.0); Hemoglobin 9.6 g/dL (14.0-18.0); Mean Corpuscular Hemoglobin 28.1 pg (27.0-31.0); Mean Platelet Volume 8.5 fL (7.4-10.4); Platelet Count 184 thou/uL (130-400); RBC Distribution Width 15.8 % (11.5-14.5); White Blood Cell (WBC) Count 15.6 thou/uL (4.8-10.8)
[2018-09-22 05:50] LABS: Anion Gap 11 mmol/L (10-20); BUN (Urea Nitrogen) 22 mg/dL (8.4-25.7); Calc. Creatinine Clearance 79 mL/min (70-130); Calcium 8.2 mg/dL (7.8-10.44); Carbon Dioxide 25 mmol/L (23-31); Chloride 101 mmol/L (98-107); Estimated GFR-MDRD Greater than 90; Glucose 108 mg/dL (83-110); Potassium 4.6 mmol/L (3.5-5.1); Sodium 132 mmol/L (136-145)
[2018-09-22] MEDS: HYDROcodone/Acetaminophen 5/325 mg Tablet PO PRN ×3 (06:15→21:08)
--- NOTE | 2018-09-22 07:39 | PDOC.PN ---
- Subjective Encounter Start Date: 09/22/18 Encounter Start Time: 09:40 Subjective: Patient reports minimal cough, chest wall pain with cough only. -: Eager to get up today if can get chest tube out. - Objective Resuscitation Status - Order Detail: 09/12/18 21:15 Resuscitation Status Routine Resuscitation Status: FULL: Full Resuscitation MAR Reviewed: Yes Vital Signs & Weight: Vital Signs (12 hours) Temp Pulse Resp BP Pulse Ox 09/22/18 03:56 98.8 F 85 20 162/71 H 200 H 09/21/18 23:49 98.7 F 80 18 133/61 100 Weight Weight 152 lb 6.4 oz Most Recent Monitor Data Heart Rate from ECG 76 NIBP 137/84 NIBP BP-Mean 101 Respiration from ECG 1 SpO2 89 I&O: 09/21/18 09/22/18 09/23/18 06:59 06:59 06:59 Intake Total 2366 1615 Output Total 1605 1840 Balance 761 -225 Result Diagrams: 09/22/18 05:02 09/22/18 05:02 Additional Labs: Accuchecks 09/21/18 08:21 POC Glucose 93 Phys Exam - Physical Examination Constitutional: NAD HEENT: moist MMs Respiratory: no wheezing, no rales, no rhonchi sternotomy with bandage c/d/i Cardiovascular: RRR, no significant murmur Gastrointestinal: soft, positive bowel sounds Neurological: non-focal, moves all 4 limbs Psychiatric: normal affect, A&O x 3 Dx/Plan (1) NSTEMI (non-ST elevated myocardial infarction) Code(s): I21.4 - NON-ST ELEVATION (NSTEMI) MYOCARDIAL INFARCTION Status: Acute (2) CAD (coronary artery disease) Code(s): I25.10 - ATHSCL HEART DISEASE OF [place] CORONARY ARTERY W/O ANG PCTRS Status: Chronic Qualifiers: Coronary Disease-Associated Artery/Lesion type: [place] artery [place] vs. transplanted heart: [place] heart Comment: Cath with 3-vessel CAD, 2-vessel CABG 09/20/2018 (3) Anxiety and depression Code(s): F41.9 - ANXIETY DISORDER, UNSPECIFIED; F32.9 - MAJOR DEPRESSIVE DISORDER, SINGLE EPISODE, UNSPECIFIED Status: Chronic (4) COPD (chronic obstructive pulmonary disease) Status: Chronic Qualifiers: Emphysema type: unspecified (5) Hypertension Code(s): I10 - ESSENTIAL (PRIMARY) HYPERTENSION Status: Chronic Qualifiers: Hypertension type: essential hypertension Qualified Code(s): I10 - Essential (primary) hypertension (6) Tobacco abuse Code(s): Z72.0 - TOBACCO USE Status: Chronic (7) PVD (peripheral vascular disease) Code(s): I73.9 - PERIPHERAL VASCULAR DISEASE, UNSPECIFIED Status: Chronic - Plan cont current plan of care, PT/OT plans to go to inpatient rehab * . - Discharge Day Encounter end time: 09:50
[2018-09-22] MEDS ORDERED: Carvedilol 6.25 MG TAB PO SCH ×2 (09:00→10:15)
[2018-09-22] MEDS: Finasteride 5 MG TAB PO SCH (09:11)
[2018-09-22] MEDS: Docusate 100 MG CAP PO SCH ×2 (09:11→21:07)
[2018-09-22] MEDS: Famotidine 20 MG TAB PO SCH ×2 (09:12→21:07)
[2018-09-22] MEDS: Aspirin 325 mg Enteric Coated Tablet PO SCH (09:13)
[2018-09-22] MEDS: Carvedilol 6.25 MG TAB PO SCH (16:43)
[2018-09-22] MEDS: Atorvastatin Calcium 40 MG TAB PO SCH (21:07)
[2018-09-22] MEDS: Zolpidem Tartrate 5 MG TAB PO PRN (21:08)
[2018-09-23 05:15] LABS: #Eosinphils 0.1 thou/uL (0.0-0.7); #Lymphocytes 1.2 thou/uL (1.20-3.40); #Monocytes 1.2 thou/uL (0.11-0.59); %Basophils 0.3 % (0.0-1.0); %Lymphocytes 10.5 % (21.0-51.0); %Monocytes 10.2 % (0.0-10.0); Hemoglobin 9.4 g/dL (14.0-18.0); Mean Corpuscular HGB CONC 32.2 g/dL (32.0-36.0); Mean Corpuscular Hemoglobin 28.6 pg (27.0-31.0); Mean Corpuscular Volume 88.7 fL (78.0-98.0); Mean Platelet Volume 8.7 fL (7.4-10.4); Platelet Count 193 thou/uL (130-400); RBC Distribution Width 16.1 % (11.5-14.5); Red Blood Cell (RBC) Count 3.28 mill/uL (4.70-6.10); White Blood Cell (WBC) Count 11.6 thou/uL (4.8-10.8)
[2018-09-23 05:37] LABS: Anion Gap 11 mmol/L (10-20); BUN (Urea Nitrogen) 18 mg/dL (8.4-25.7); Calc. Creatinine Clearance 97 mL/min (70-130); Calcium 7.8 mg/dL (7.8-10.44); Carbon Dioxide 23 mmol/L (23-31); Chloride 105 mmol/L (98-107); Estimated GFR-MDRD Greater than 90; Glucose 106 mg/dL (83-110); Sodium 135 mmol/L (136-145)
[2018-09-23] MEDS: Aspirin 325 mg Enteric Coated Tablet PO SCH (08:25)
[2018-09-23] MEDS: Docusate 100 MG CAP PO SCH ×2 (08:25→20:39)
[2018-09-23] MEDS: Carvedilol 6.25 MG TAB PO SCH ×2 (08:25→16:42)
[2018-09-23] MEDS: Finasteride 5 MG TAB PO SCH (08:26)
[2018-09-23] MEDS: Famotidine 20 MG TAB PO SCH ×2 (08:26→20:40)
[2018-09-23] MEDS: Tamsulosin HCl 0.4 MG CAP PO SCH ×2 (08:27→20:40)
--- NOTE | 2018-09-23 09:29 | PDOC.PN ---
- Subjective Encounter Start Date: 09/23/18 Encounter Start Time: 11:50 - Objective Resuscitation Status - Order Detail: 09/12/18 21:15 Resuscitation Status Routine Resuscitation Status: FULL: Full Resuscitation MAR Reviewed: Yes Vital Signs & Weight: Vital Signs (12 hours) Temp Pulse Resp BP BP BP Pulse Ox 09/23/18 08:25 146/70 H 09/23/18 07:29 98.1 F 76 18 148/70 H 95 09/23/18 03:43 98.3 F 72 16 114/55 L 96 Weight Weight 151 lb 11.2 oz Most Recent Monitor Data Heart Rate from ECG 76 NIBP 137/84 NIBP BP-Mean 101 Respiration from ECG 1 SpO2 89 I&O: 09/22/18 09/23/18 09/24/18 06:59 06:59 06:59 Intake Total 1615 2090 Output Total 1840 1410 Balance -225 680 Result Diagrams: 09/23/18 04:26 09/23/18 04:26 Additional Labs: Accuchecks 09/20/18 09/20/18 09/20/18 12:10 11:22 11:02 POC Glucose 104 168 H 178 H 09/20/18 09/20/18 09/20/18 10:17 09:47 08:10 POC Glucose 171 H 140 H 129 H Dx/Plan (1) NSTEMI (non-ST elevated myocardial infarction) Code(s): I21.4 - NON-ST ELEVATION (NSTEMI) MYOCARDIAL INFARCTION Status: Acute (2) CAD (coronary artery disease) Code(s): I25.10 - ATHSCL HEART DISEASE OF [place] CORONARY ARTERY W/O ANG PCTRS Status: Chronic Qualifiers: Coronary Disease-Associated Artery/Lesion type: [place] artery [place] vs. transplanted heart: [place] heart Comment: Cath with 3-vessel CAD, 2-vessel CABG 09/20/2018 (3) Anxiety and depression Code(s): F41.9 - ANXIETY DISORDER, UNSPECIFIED; F32.9 - MAJOR DEPRESSIVE DISORDER, SINGLE EPISODE, UNSPECIFIED Status: Chronic (4) COPD (chronic obstructive pulmonary disease) Status: Chronic Qualifiers: Emphysema type: unspecified (5) Hypertension Code(s): I10 - ESSENTIAL (PRIMARY) HYPERTENSION Status: Chronic Qualifiers: Hypertension type: essential hypertension Qualified Code(s): I10 - Essential (primary) hypertension (6) Tobacco abuse Code(s): Z72.0 - TOBACCO USE Status: Chronic (7) PVD (peripheral vascular disease) Code(s): I73.9 - PERIPHERAL VASCULAR DISEASE, UNSPECIFIED Status: Chronic - Plan cont current plan of care, PT/OT plan for discharge to rehab once accepted * . - Discharge Day Encounter end time: 12:00
[2018-09-23 13:39] VITALS: BMI 24.5
[2018-09-23] MEDS: HYDROcodone/Acetaminophen 5/325 mg Tablet PO PRN ×2 (18:06→21:20)
[2018-09-23] MEDS: Atorvastatin Calcium 40 MG TAB PO SCH (20:39)
[2018-09-23] MEDS: Zolpidem Tartrate 5 MG TAB PO PRN (20:40)
[2018-09-24 06:38] LABS: #Eosinphils 0.2 thou/uL (0.0-0.7); #Lymphocytes 1.1 thou/uL (1.20-3.40); #Monocytes 1.2 thou/uL (0.11-0.59); #Neutrophils 8.2 thou/uL (1.40-6.50); %Basophils 0.4 % (0.0-1.0); %Eosinophils 1.5 % (0.0-10.0); %Lymphocytes 10.1 % (21.0-51.0); %Monocytes 11.2 % (0.0-10.0); %Neutrophils 76.8 % (42.0-75.0); Mean Corpuscular HGB CONC 30.7 g/dL (32.0-36.0); Mean Corpuscular Hemoglobin 28.2 pg (27.0-31.0); Mean Corpuscular Volume 91.9 fL (78.0-98.0); Mean Platelet Volume 8.1 fL (7.4-10.4); Platelet Count 248 thou/uL (130-400); Red Blood Cell (RBC) Count 3.56 mill/uL (4.70-6.10); White Blood Cell (WBC) Count 10.6 thou/uL (4.8-10.8)
[2018-09-24 06:55] LABS: Anion Gap 10 mmol/L (10-20); BUN (Urea Nitrogen) 13 mg/dL (8.4-25.7); Calc. Creatinine Clearance 96 mL/min (70-130); Calcium 8.3 mg/dL (7.8-10.44); Carbon Dioxide 24 mmol/L (23-31); Chloride 104 mmol/L (98-107); Estimated GFR-MDRD Greater than 90; Glucose 98 mg/dL (83-110); Potassium 3.8 mmol/L (3.5-5.1); Sodium 134 mmol/L (136-145)
[2018-09-24] MEDS: Aspirin 325 mg Enteric Coated Tablet PO SCH (08:20)
[2018-09-24] MEDS: Famotidine 20 MG TAB PO SCH ×2 (08:20→20:35)
[2018-09-24] MEDS: Carvedilol 6.25 MG TAB PO SCH ×2 (08:20→17:56)
[2018-09-24] MEDS: Docusate 100 MG CAP PO SCH ×2 (08:20→20:35)
[2018-09-24] MEDS: Tamsulosin HCl 0.4 MG CAP PO SCH ×2 (08:21→20:34)
[2018-09-24] MEDS: Finasteride 5 MG TAB PO SCH (08:22)
[2018-09-24] MEDS: HYDROcodone/Acetaminophen 5/325 mg Tablet PO PRN ×2 (08:24→20:35)
[2018-09-24] MEDS ORDERED: Eucerin (Mineral Oil/Petrolatum,White) 30 gm Jar TOP PRN (08:35)
[2018-09-24] MEDS ORDERED: hydrALAZINE 20 MG/ML VIAL SLOW IVP PRN (08:35)
[2018-09-24] MEDS ORDERED: Diabetic Tussin 200 MG/10 ML UDCUP PO PRN (08:35)
[2018-09-24] MEDS ORDERED: Ondansetron ODT 4 MG TAB PO PRN (08:35)
[2018-09-24] MEDS ORDERED: Calcium Carbonate 500 MG ChewTAB PO PRN (08:35)
[2018-09-24] MEDS ORDERED: Cepastat Lozenges 1 LOZ PO PRN (08:35)
[2018-09-24] MEDS ORDERED: Sodium Chloride 0.65% Nasal 44 ML BOT EA NARE PRN (08:35)
--- NOTE | 2018-09-24 12:21 | PDOC.PN ---
- Subjective Encounter Start Date: 09/24/18 Encounter Start Time: 08:15 -: old records requested/rev Patient seen and examined. No new complaints. No overnight events pt is anxious today - Objective Resuscitation Status - Order Detail: 09/12/18 21:15 Resuscitation Status Routine Resuscitation Status: FULL: Full Resuscitation MAR Reviewed: Yes Vital Signs & Weight: Vital Signs (12 hours) Temp Pulse Resp BP Pulse Ox 09/24/18 11:11 98.9 F 73 20 126/60 100 09/24/18 08:10 99.4 F 79 17 161/72 H 100 09/24/18 03:49 97.7 F 72 18 150/67 H 94 L Weight Admit Weight 135 lb 6.4 oz Weight 151 lb 11.2 oz Most Recent Monitor Data Heart Rate from ECG 76 NIBP 137/84 NIBP BP-Mean 101 Respiration from ECG 1 SpO2 89 I&O: 09/23/18 09/24/18 09/25/18 06:59 06:59 06:59 Intake Total 2090 1480 Output Total 1410 1440 Balance 680 40 Result Diagrams: 09/24/18 06:13 09/24/18 06:13 Radiology Reviewed by me: Yes EKG Reviewed by me: Yes Phys Exam - Physical Examination Constitutional: NAD HEENT: PERRLA, moist MMs, sclera anicteric Neck: no JVD, supple Respiratory: no wheezing, no rales, no rhonchi Cardiovascular: RRR, no significant murmur, no rub surgical site clean Gastrointestinal: soft, non-tender, no distention, positive bowel sounds Musculoskeletal: no edema, pulses present Neurological: non-focal, normal sensation, moves all 4 limbs Lymphatic: no nodes Psychiatric: normal affect, A&O x 3 Skin: no rash, normal turgor Dx/Plan (1) S/P CABG x 2 Code(s): Z95.1 - PRESENCE OF AORTOCORONARY BYPASS GRAFT Status: Acute (2) Anemia, normocytic normochromic Code(s): D64.9 - ANEMIA, UNSPECIFIED Status: Chronic (3) Anxiety and depression Code(s): F41.9 - ANXIETY DISORDER, UNSPECIFIED; F32.9 - MAJOR DEPRESSIVE DISORDER, SINGLE EPISODE, UNSPECIFIED Status: Chronic (4) BPH (benign prostatic hyperplasia) Code(s): N40.0 - BENIGN PROSTATIC HYPERPLASIA WITHOUT LOWER URINRY TRACT SYMP Status: Chronic (5) CAD (coronary artery disease) Code(s): I25.10 - ATHSCL HEART DISEASE OF [place] CORONARY ARTERY W/O ANG PCTRS Status: Chronic Qualifiers: Coronary Disease-Associated Artery/Lesion type: [place] artery [place] vs. transplanted heart: [place] heart Comment: Cath with 3-vessel CAD, 2-vessel CABG 09/20/2018 (6) COPD (chronic obstructive pulmonary disease) Status: Chronic Qualifiers: Emphysema type: unspecified (7) Chronic combined systolic and diastolic CHF (congestive heart failure) Code(s): I50.42 - CHRONIC COMBINED SYSTOLIC AND DIASTOLIC HRT FAIL Status: Chronic (8) Hypertension Code(s): I10 - ESSENTIAL (PRIMARY) HYPERTENSION Status: Chronic Qualifiers: Hypertension type: essential hypertension Qualified Code(s): I10 - Essential (primary) hypertension (9) LBBB (left bundle branch block) Code(s): I44.7 - LEFT BUNDLE-BRANCH BLOCK, UNSPECIFIED Status: Chronic (10) PVD (peripheral vascular disease) Code(s): I73.9 - PERIPHERAL VASCULAR DISEASE, UNSPECIFIED Status: Chronic (11) Tobacco abuse Code(s): Z72.0 - TOBACCO USE Status: Chronic - 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 Review of Systems - Review of Systems ENT: negative: Ear Pain, Ear Discharge, Nose Pain, Nose Discharge, Nose Congestion, Mouth Pain, Mouth Swelling, Throat Pain, Throat Swelling, Other Respiratory: negative: Cough, Dry, Shortness of Breath, Hemoptysis, SOB with Excertion, Pleuritic Pain, Sputum, Wheezing Cardiovascular: negative: chest pain, palpitations, orthopnea, paroxysmal nocturnal dyspnea, edema, light headedness, other Gastrointestinal: negative: Nausea, Vomiting, Abdominal Pain, Diarrhea, Constipation, Melena, Hematochezia, Other Genitourinary: negative: Dysuria, Frequency, Incontinence, Hematuria, Retention , Other Musculoskeletal: negative: Neck Pain, Shoulder Pain, Arm Pain, Back Pain, Hand Pain, Leg Pain, Foot Pain, Other Skin: negative: Rash, Lesions, Jc, Bruising, Other - Medications/Allergies Allergies/Adverse Reactions: Allergies Allergy/AdvReac Type Severity Reaction Status Date / Time No Known Allergies Allergy Verified 09/12/18 22:06 Medications: Current Medications Hydrocodone Bitart/Acetaminophen ([place] 5/325) 1 tab PO Q4H PRN PRN Reason: Moderate Pain (4-6) Last Admin: 09/24/18 08:24 Dose: 1 tab Hydrocodone Bitart/Acetaminophen ([place] 5/325) 2 tab PO Q4H PRN PRN Reason: Severe Pain (7-10) Last Admin: 09/22/18 21:08 Dose: 2 tab Al Hydroxide/Mg Hydroxide (Maalox) 30 ml PO Q4H PRN PRN Reason: Indigestion Albuterol/Ipratropium (Duoneb) 3 ml NEB [id number] PRN PRN Reason: Respiratory Distress Alprazolam (Xanax) 0.25 mg PO Q8H PRN PRN Reason: Anxiety Artificial Tears (Tears Naturale) 0 drop EA EYE PRN PRN PRN Reason: Dry Eyes Aspirin (Ecotrin) 325 mg PO DAILY [facility] Last Admin: 09/24/18 08:20 Dose: 325 mg Atorvastatin Calcium (Lipitor) 80 mg PO [facility] Last Admin: 09/23/18 20:39 Dose: 80 mg Benzonatate (Tessalon) 100 mg PO Q4H PRN PRN Reason: Cough Bisacodyl (Dulcolax) 10 mg PO Q12H PRN PRN Reason: Constipation Bisacodyl (Dulcolax) 10 mg [place] Q12H PRN PRN Reason: Constipation Calcium Carbonate (Tums) 1,000 mg PO Q4H PRN PRN Reason: Heartburn or Indigestion Carvedilol (Coreg) 6.25 mg PO BID[facility] Last Admin: 09/24/18 08:20 Dose: 6.25 mg Diphenhydramine HCl (Benadryl) 25 mg PO Q6H PRN PRN Reason: Itching & Insomnia or Ramon Timothy Docusate Sodium (Colace) 100 mg PO BID [facility] Last Admin: 09/24/18 08:20 Dose: 100 mg Famotidine (Pepcid) 20 mg PO BID [facility] Last Admin: 09/24/18 08:20 Dose: 20 mg Finasteride (Proscar) 5 mg PO DAILY [facility] Last Admin: 09/24/18 08:22 Dose: 5 mg Guaifenesin (Robitussin Sf) 200 mg PO Q4H PRN PRN Reason: Cough Guaifenesin/Dextromethorphan (Robitussin Dm) 15 ml PO Q4H PRN PRN Reason: Cough Hydralazine HCl (Apresoline) 10 mg SLOW IVP Q4H PRN PRN Reason: SBP > 180 and HR < 70 Mineral Oil (Fleet Mineral Oil) 133 ml [place] DAILYPRN PRN PRN Reason: Constipation Mineral Oil/White Petrolatum (Eucerin Cream) 0 gm TOP BIDPRN PRN PRN Reason: Dry Skin Nitroglycerin (Nitrostat) 0.4 mg SL Q5MIN PRN PRN Reason: Chest Pain Ondansetron HCl (Zofran) 4 mg IVP Q6H PRN PRN Reason: Nausea/Vomiting Last Admin: 09/21/18 06:05 Dose: 4 mg Ondansetron HCl (Zofran Odt) 4 mg PO Q6H PRN PRN Reason: Nausea/Vomiting Sodium Chloride (Flush - Normal Saline) 10 ml IVF Q12HR [facility] Last Admin: 09/24/18 08:23 Dose: 10 ml Sodium Chloride ([place] Nasal [place] 0.65%) 0 ml EA NARE QIDPRN PRN PRN Reason: Nasal Congestion Tamsulosin HCl (Flomax) 0.4 mg PO HS [facility] Last Admin: 09/23/18 20:40 Dose: 0.4 mg Throat Lozenges (Cepastat Lozenges) 1 manas PO Q2H PRN PRN Reason: Sore Throat Zolpidem Tartrate (Ambien) 5 mg PO HSPRN PRN PRN Reason: Insomnia Last Admin: 09/23/18 20:40 Dose: 5 mg
[2018-09-24] MEDS: ALPRAZolam 0.25 MG TAB PO PRN (13:21)
[2018-09-24] MEDS: Zolpidem Tartrate 5 MG TAB PO PRN (20:34)
[2018-09-24] MEDS: Atorvastatin Calcium 40 MG TAB PO SCH (20:34)
[2018-09-25] MEDS: Carvedilol 6.25 MG TAB PO SCH ×2 (08:31→17:35)
[2018-09-25] MEDS: Aspirin 325 mg Enteric Coated Tablet PO SCH (08:33)
[2018-09-25] MEDS: Docusate 100 MG CAP PO SCH (08:33)
[2018-09-25] MEDS: Famotidine 20 MG TAB PO SCH (08:33)
[2018-09-25] MEDS: Finasteride 5 MG TAB PO SCH (08:34)
--- NOTE | 2018-09-25 13:26 | PDOC.PN ---
- Subjective Encounter Start Date: 09/25/18 Encounter Start Time: 08:45 Patient seen and examined. No new complaints. No overnight events pt does not want to go rehab - Objective Resuscitation Status - Order Detail: 09/12/18 21:15 Resuscitation Status Routine Resuscitation Status: FULL: Full Resuscitation MAR Reviewed: Yes Vital Signs & Weight: Vital Signs (12 hours) Temp Pulse Pulse Pulse Resp BP BP 09/25/18 12:54 86 80 144/69 H 09/25/18 08:31 159/70 H 09/25/18 04:00 97.7 F 74 20 BP BP Pulse Ox Pulse Ox 09/25/18 12:54 140/62 96 09/25/18 08:31 09/25/18 04:00 125/59 L 98 Weight Admit Weight 135 lb 6.4 oz Weight 151 lb 11.2 oz Most Recent Monitor Data Heart Rate from ECG 76 NIBP 137/84 NIBP BP-Mean 101 Respiration from ECG 1 SpO2 89 I&O: 09/24/18 09/25/18 09/26/18 06:59 06:59 06:59 Intake Total 1480 1280 Output Total 1440 1350 Balance 40 -70 Result Diagrams: 09/24/18 06:13 09/24/18 06:13 EKG Reviewed by me: Yes Phys Exam - Physical Examination Constitutional: NAD HEENT: PERRLA, moist MMs, sclera anicteric Neck: no JVD, supple Respiratory: no wheezing, no rales, no rhonchi Cardiovascular: RRR, no significant murmur, no rub Gastrointestinal: soft, non-tender, no distention, positive bowel sounds Musculoskeletal: no edema, pulses present Neurological: non-focal, normal sensation, moves all 4 limbs Lymphatic: no nodes Psychiatric: normal affect, A&O x 3 Skin: no rash, normal turgor Dx/Plan (1) S/P CABG x 2 Code(s): Z95.1 - PRESENCE OF AORTOCORONARY BYPASS GRAFT Status: Acute (2) Anemia, normocytic normochromic Code(s): D64.9 - ANEMIA, UNSPECIFIED Status: Chronic (3) Anxiety and depression Code(s): F41.9 - ANXIETY DISORDER, UNSPECIFIED; F32.9 - MAJOR DEPRESSIVE DISORDER, SINGLE EPISODE, UNSPECIFIED Status: Chronic (4) BPH (benign prostatic hyperplasia) Code(s): N40.0 - BENIGN PROSTATIC HYPERPLASIA WITHOUT LOWER URINRY TRACT SYMP Status: Chronic (5) CAD (coronary artery disease) Code(s): I25.10 - ATHSCL HEART DISEASE OF [place] CORONARY ARTERY W/O ANG PCTRS Status: Chronic Qualifiers: Coronary Disease-Associated Artery/Lesion type: [place] artery [place] vs. transplanted heart: [place] heart Comment: Cath with 3-vessel CAD, 2-vessel CABG 09/20/2018 (6) COPD (chronic obstructive pulmonary disease) Status: Chronic Qualifiers: Emphysema type: unspecified (7) Chronic combined systolic and diastolic CHF (congestive heart failure) Code(s): I50.42 - CHRONIC COMBINED SYSTOLIC AND DIASTOLIC HRT FAIL Status: Chronic (8) Hypertension Code(s): I10 - ESSENTIAL (PRIMARY) HYPERTENSION Status: Chronic Qualifiers: Hypertension type: essential hypertension Qualified Code(s): I10 - Essential (primary) hypertension (9) LBBB (left bundle branch block) Code(s): I44.7 - LEFT BUNDLE-BRANCH BLOCK, UNSPECIFIED Status: Chronic (10) PVD (peripheral vascular disease) Code(s): I73.9 - PERIPHERAL VASCULAR DISEASE, UNSPECIFIED Status: Chronic (11) Tobacco abuse Code(s): Z72.0 - TOBACCO USE Status: Chronic - 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 Review of Systems - Review of Systems ENT: negative: Ear Pain, Ear Discharge, Nose Pain, Nose Discharge, Nose Congestion, Mouth Pain, Mouth Swelling, Throat Pain, Throat Swelling, Other Respiratory: negative: Cough, Dry, Shortness of Breath, Hemoptysis, SOB with Excertion, Pleuritic Pain, Sputum, Wheezing Cardiovascular: negative: chest pain, palpitations, orthopnea, paroxysmal nocturnal dyspnea, edema, light headedness, other Gastrointestinal: negative: Nausea, Vomiting, Abdominal Pain, Diarrhea, Constipation, Melena, Hematochezia, Other Genitourinary: negative: Dysuria, Frequency, Incontinence, Hematuria, Retention , Other Musculoskeletal: negative: Neck Pain, Shoulder Pain, Arm Pain, Back Pain, Hand Pain, Leg Pain, Foot Pain, Other - Medications/Allergies Allergies/Adverse Reactions: Allergies Allergy/AdvReac Type Severity Reaction Status Date / Time No Known Allergies Allergy Verified 09/12/18 22:06 Medications: Current Medications Hydrocodone Bitart/Acetaminophen ([place] 5/325) 1 tab PO Q4H PRN PRN Reason: Moderate Pain (4-6) Last Admin: 09/24/18 08:24 Dose: 1 tab Hydrocodone Bitart/Acetaminophen ([place] 5/325) 2 tab PO Q4H PRN PRN Reason: Severe Pain (7-10) Last Admin: 09/24/18 20:35 Dose: 2 tab Al Hydroxide/Mg Hydroxide (Maalox) 30 ml PO Q4H PRN PRN Reason: Indigestion Albuterol/Ipratropium (Duoneb) 3 ml NEB [id number] PRN PRN Reason: Respiratory Distress Alprazolam (Xanax) 0.25 mg PO Q8H PRN PRN Reason: Anxiety Last Admin: 09/24/18 13:21 Dose: 0.25 mg Artificial Tears (Tears Naturale) 0 drop EA EYE PRN PRN PRN Reason: Dry Eyes Aspirin (Ecotrin) 325 mg PO DAILY [facility] Last Admin: 09/25/18 08:33 Dose: 325 mg Atorvastatin Calcium (Lipitor) 80 mg PO HS [facility] Last Admin: 09/24/18 20:34 Dose: 80 mg Benzonatate (Tessalon) 100 mg PO Q4H PRN PRN Reason: Cough Bisacodyl (Dulcolax) 10 mg PO Q12H PRN PRN Reason: Constipation Bisacodyl (Dulcolax) 10 mg [place] Q12H PRN PRN Reason: Constipation Calcium Carbonate (Tums) 1,000 mg PO Q4H PRN PRN Reason: Heartburn or Indigestion Carvedilol (Coreg) 6.25 mg PO BID[facility] Last Admin: 09/25/18 08:31 Dose: 6.25 mg Diphenhydramine HCl (Benadryl) 25 mg PO Q6H PRN PRN Reason: Itching & Insomnia or Ramon Timothy Docusate Sodium (Colace) 100 mg PO BID [facility] Last Admin: 09/25/18 08:33 Dose: 100 mg Famotidine (Pepcid) 20 mg PO BID [facility] Last Admin: 09/25/18 08:33 Dose: 20 mg Finasteride (Proscar) 5 mg PO DAILY [facility] Last Admin: 09/25/18 08:34 Dose: 5 mg Guaifenesin (Robitussin Sf) 200 mg PO Q4H PRN PRN Reason: Cough Guaifenesin/Dextromethorphan (Robitussin Dm) 15 ml PO Q4H PRN PRN Reason: Cough Hydralazine HCl (Apresoline) 10 mg SLOW IVP Q4H PRN PRN Reason: SBP > 180 and HR < 70 Mineral Oil (Fleet Mineral Oil) 133 ml [place] DAILYPRN PRN PRN Reason: Constipation Mineral Oil/White Petrolatum (Eucerin Cream) 0 gm TOP BIDPRN PRN PRN Reason: Dry Skin Nitroglycerin (Nitrostat) 0.4 mg SL Q5MIN PRN PRN Reason: Chest Pain Ondansetron HCl (Zofran) 4 mg IVP Q6H PRN PRN Reason: Nausea/Vomiting Last Admin: 09/21/18 06:05 Dose: 4 mg Ondansetron HCl (Zofran Odt) 4 mg PO Q6H PRN PRN Reason: Nausea/Vomiting Sodium Chloride (Flush - Normal Saline) 10 ml IVF Q12HR [facility] Last Admin: 09/25/18 08:34 Dose: 10 ml Sodium Chloride ([place] Nasal [place] 0.65%) 0 ml EA NARE QIDPRN PRN PRN Reason: Nasal Congestion Tamsulosin HCl (Flomax) 0.4 mg PO HS [facility] Last Admin: 09/24/18 20:34 Dose: 0.4 mg Throat Lozenges (Cepastat Lozenges) 1 manas PO Q2H PRN PRN Reason: Sore Throat Zolpidem Tartrate (Ambien) 5 mg PO HSPRN PRN PRN Reason: Insomnia Last Admin: 09/24/18 20:34 Dose: 5 mg
--- NOTE | 2018-09-25 13:59 | DIS ---
DATE OF ADMISSION: 09/15/2018 DATE OF DISCHARGE: 09/25/2018 PRIMARY CARE PHYSICIAN: Mc Hendricks MD. DISCHARGE DISPOSITION: Home/rehab. PRIMARY DISCHARGE DIAGNOSES: Chest pain, three-vessel coronary artery disease, status post coronary artery bypass graft. SECONDARY DISCHARGE DIAGNOSES: Tobacco abuse, peripheral vascular disease, LBBB, hypertension, chronic obstructive pulmonary disease, chronic combined systolic and diastolic heart failure, coronary artery disease, benign enlargement of prostate, anxiety and depression, normocytic normochromic anemia. PRIMARY PROCEDURE/OPERATION: Cardiac catheterization was done by Dr. Bermudez and found with three-vessel coronary artery disease. Coronary artery bypass graft was performed by Dr. Markham. RADIOLOGICAL INVESTIGATION: Chest x-ray, stress test echocardiography showed LVH, EF 35% to 40%, diastolic dysfunction. SIGNIFICANT LABORATORY DATA: WBC 10.6, hemoglobin 10.0, platelet 248. INR 1.3. Sodium 134, potassium 3.8, BUN 13, creatinine 0.69, calcium 8.3. DISCHARGE MEDICATIONS: 1. Nitroglycerin 0.4 mg sublingual p.r.n. for chest pain. 2. Aspirin 325 mg p.o. daily. 3. Lipitor 80 mg p.o. at bedtime. 4. Celexa 20 mg daily. 5. Nexium 40 mg p.o. b.i.d. 6. Zetia 10 mg p.o. at bedtime. 7. Ferrous sulfate one tablet p.o. daily. 8. Gabapentin 300 mg p.o. t.i.d. 9. Flomax 0.4 mg p.o. at bedtime. 10. Anoro inhalation daily. 11. Ambien 10 mg p.o. at bedtime. 12. Coreg 6.25 mg b.i.d. 13. Proscar 5 mg daily. 14. Nemo 5 one or two tablets q.4 hourly p.r.n. CONTRAINDICATION: None. CODE STATUS: Full code. 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 Bermudez was following while in hospital. Dr. Markham was consulted for CABG. TEST RESULT PENDING ON DISCHARGE: None. ALLERGIES: NO KNOWN DRUG ALLERGIES. DISCHARGE PLAN: Posthospital, the patient will follow up with primary care physician in one week. The patient will follow up with Dr. Markham in 1 or 2 weeks. The patient will follow up with Dr. Bermudez as instructed. HOSPITAL COURSE: A 73-year-old male who was admitted by Dr. Napier on September 12, 2018. Please see his H and P for further details. Initially, he presented with chest pain. He was under observation status. He had a stress test done which showed reversible ischemia with dyskinesia. Echocardiography showed systolic and diastolic dysfunction. The patient underwent cardiac catheterization, found with significant coronary artery disease required CABG. Post CABG, the patient remained in CCU and subsequently, he was transferred to telemetry floor. He has physical weakness and that is why he needs placement and with help of case monitor, we tried to arrange rehab and he has approval to go to rehab, but the patient today denies to go to rehab facility. If he agrees to rehab facility, then we will discharge him there. Otherwise, our case monitor will explore different options for him. Paperwork for discharge done. Discharge medication reconciliation done. Job ID: [id number]
[2018-09-25] MEDS: ALPRAZolam 0.25 MG TAB PO PRN (14:35)
--- NOTE | 2018-09-25 15:21 | PDOC.CTH ---
Cardiology Progress Note - Subjective The pt seen and examined. No cardiac complaints. No overnight events. He is walking with PT without any cardiac complaints. He complains of weakness. - Objective Vital Signs Temp Pulse Pulse Pulse Resp BP BP 09/25/18 12:54 86 80 144/69 H 09/25/18 08:31 159/70 H 09/25/18 04:00 97.7 F 74 20 BP BP Pulse Ox Pulse Ox 09/25/18 12:54 140/62 96 09/25/18 08:31 09/25/18 04:00 125/59 L 98 Admit Weight 135 lb 6.4 oz Weight 151 lb 11.2 oz 09/24/18 09/25/18 09/26/18 06:59 06:59 06:59 Intake Total 1480 1280 Output Total 1440 1350 Balance 40 -70 - Physical Examination General/Neuro: alert & oriented x3 Neck: no JVD present Lungs: other: (diminished at bases) Heart: RRR Abdomen: soft Extremities: other: (No edema) - Telemetry Telemetry Rhythm: SR - Labs Result Diagrams: 09/24/18 06:13 09/24/18 06:13 Troponin/CKMB CK-MB (CK-2) 1.8 ng/mL (0-6.6) 09/12/18 21:25 Troponin I 0.023 ng/mL (< 0.028) 09/13/18 00:58 - Assessment/Plan 1. S/P CABG x 2 on 09/20/2018 - stable; on ASA 325mg qd, Lipitor 80mg, and Coreg 2. Chronic combined HF - stable; on bblocker; will resume diuretic when the pt is symptomatic. 3. HTN - stable 4. COPD - stable with NC. 5. LBBB - unchanged 6. Chronic Anemia 7. Tobacco abuse - smoking cessation education given MAR reviewed * From Cardiac standpoint, the pt is stable to tx to rehab. The pt will f/u with Dr Bermudez's office within 2 wks after he is d/candy from Rehab. Review of Systems - Review of Systems Constitutional: reports: weakness EENTM: reports: no symptoms reported Respiratory: reports: no symptoms reported Cardiac (ROS): reports: no symptoms reported ABD/GI: reports: no symptoms reported : reports: no symptoms reported Musculoskeletal: reports: no symptoms reported
[2018-09-25 16:43] VITALS: BP 141/72; TEMP 97.4
--- NOTE | 2018-09-29 15:27 | EKG ---
Test Reason : CP Blood Pressure : / mmHG Vent. Rate : 086 BPM Atrial Rate : 086 BPM P-R Int : 138 ms QRS Dur : 154 ms QT Int : 448 ms P-R-T Axes : 064 006 138 degrees QTc Int : 536 ms Normal sinus rhythm Left bundle branch block Abnormal ECG Confirmed by FRANKIE SINGER ([id number]), map editor VERONICA SANTAMARIA ([id number]) on 09/29/2018 3:26:55 PM Referred By: ER Confirmed By:FRANKIE SINGER
== END 2018-09-25 18:40 | DRG 234 ==
LOC: ERS 17:54 → ERHOLD 19:34 → 2SW 22:39 → OBSVTOIN 09-15 15:32 → 2NO 09-15 18:38 → CCU 09-20 07:49 → 2NO 09-21 15:41
PROVIDERS: ADMIT Hospitalist; ATTEND Hospitalist
PROC: B2111ZZ Fluoroscopy of Multiple Coronary Arteries using Low Osmolar Contrast (ICD-10-PCS; 2018-09-15)
PROC: 4A023N7 Measurement of Cardiac Sampling and Pressure, Left Heart, Percutaneous Approach (ICD-10-PCS; 2018-09-15)
PROC: 4A033BC Measurement of Arterial Pressure, Coronary, Percutaneous Approach (ICD-10-PCS; 2018-09-15)
PROC: 02100Z9 Bypass Coronary Artery, One Artery from Left Internal Mammary, Open Approach (ICD-10-PCS; principal; 2018-09-20)
PROC: 021009W Bypass Coronary Artery, One Artery from Aorta with Autologous Venous Tissue, Open Approach (ICD-10-PCS; 2018-09-20)
PROC: 06BQ4ZZ Excision of Left Saphenous Vein, Percutaneous Endoscopic Approach (ICD-10-PCS; 2018-09-20)
PROC: 5A1221Z Performance of Cardiac Output, Continuous (ICD-10-PCS; 2018-09-20)
PROC: 30233L1 Transfusion of Nonautologous Fresh Plasma into Peripheral Vein, Percutaneous Approach (ICD-10-PCS; 2018-09-20)
PROC: 30233N1 Transfusion of Nonautologous Red Blood Cells into Peripheral Vein, Percutaneous Approach (ICD-10-PCS; 2018-09-20)
DX: I21.4 Non-ST elevation (NSTEMI) myocardial infarction (principal); E87.1 Hypo-osmolality and hyponatremia; I50.42 Chronic combined systolic (congestive) and diastolic (congestive) heart failure; I25.10 Atherosclerotic heart disease of native coronary artery without angina pectoris; E78.00 Pure hypercholesterolemia, unspecified; I10 Essential (primary) hypertension; J44.9 Chronic obstructive pulmonary disease, unspecified; I11.0 Hypertensive heart disease with heart failure; D64.9 Anemia, unspecified; I73.9 Peripheral vascular disease, unspecified; F17.210 Nicotine dependence, cigarettes, uncomplicated; I25.2 Old myocardial infarction; K21.9 Gastro-esophageal reflux disease without esophagitis; I44.7 Left bundle-branch block, unspecified; N40.1 Benign prostatic hyperplasia with lower urinary tract symptoms; R33.8 Other retention of urine; Z95.820 Peripheral vascular angioplasty status with implants and grafts; F41.8 Other specified anxiety disorders; Z82.49 Family history of ischemic heart disease and other diseases of the circulatory system; Z79.82 Long term (current) use of aspirin; Z79.02 Long term (current) use of antithrombotics/antiplatelets
CPT/HCPCS: 36415; 36416; 36430; 71045; 78452; 80048; 80053; 80061; 82274; 82553; 82607; 82728; 82805; 84484; 85025; 85347; 85610; 85730; 86850; 86900; 86901; 93005; 93010; 93017; 93306; 93458; 93571; 93798; 94002; 94640; 94760; 99152; 99153; A9500; C1769; C1887; J0153; J0171; J0583; J0670; J1100; J1265; J1642; J1644; J1650; J1815; J1885; J2001; J2150; J2250; J2270; J2405; J2440; J2720; J2785; J3010; J3370; J3475; J3480; J7050; J7620; P9016; P9045; P9047; P9059; Q0162; Q9967; S0017; S0028

== ENCOUNTER 2018-10-13 10:07 | Emergency (ER) | payer MEDICARE, MEDICAID ==
[2018-10-13] MEDS ORDERED: ISOVUE-370 76%-LOCM 1 ML ONE (10:23)
[2018-10-13 11:01] LABS: #Eosinphils 0.1 thou/uL (0.0-0.7); #Lymphocytes 1.1 thou/uL (1.20-3.40); #Monocytes 0.8 thou/uL (0.11-0.59); #Neutrophils 4.3 thou/uL (1.40-6.50); %Basophils 0.6 % (0.0-1.0); %Eosinophils 1.4 % (0.0-10.0); %Lymphocytes 16.9 % (21.0-51.0); %Monocytes 12.8 % (0.0-10.0); %Neutrophils 68.3 % (42.0-75.0); Hemoglobin 10.2 g/dL (14.0-18.0); Mean Corpuscular HGB CONC 31.8 g/dL (32.0-36.0); Mean Corpuscular Hemoglobin 28.5 pg (27.0-31.0); Mean Corpuscular Volume 89.5 fL (78.0-98.0); Platelet Count 376 thou/uL (130-400); RBC Distribution Width 18.5 % (11.5-14.5); Red Blood Cell (RBC) Count 3.59 mill/uL (4.70-6.10); White Blood Cell (WBC) Count 6.3 thou/uL (4.8-10.8)
[2018-10-13 11:02] LABS: Bilirubin Negative (Negative); Blood, Urine Negative (Negative); Glucose, Urine (Dipstick) Negative (Negative); Leukocyte Negative (Negative); Nitrite Negative (Negative); Protein, Urine (Dipstick) Negative (Neg-Trace); Specific Gravity, Urine 1.015 (1.005-1.030)
[2018-10-13 11:05] LABS: Clarity CLEAR (Clear)
[2018-10-13 11:12] LABS: Anion Gap 15 mmol/L (10-20); BUN (Urea Nitrogen) 11 mg/dL (8.4-25.7); Calc. Creatinine Clearance 0 mL/min (70-130); Calcium 8.8 mg/dL (7.8-10.44); Carbon Dioxide 22 mmol/L (23-31); Chloride 104 mmol/L (98-107); Estimated GFR-MDRD 89; Glucose 108 mg/dL (83-110); Potassium 4.2 mmol/L (3.5-5.1); Sodium 137 mmol/L (136-145)
--- NOTE | 2018-10-13 12:22 | CT ---
CT ABDOMEN AND PELVIS WITH CONTRAST: HISTORY: Urinary retention. Abdominal pain. COMPARISON: CT abdomen and pelvis from 2016. FINDINGS: There are small bilateral pleural effusions. Low grade pulmonary edema. There appear to be relatively new midline sternotomy wires with a retrosternal hematoma, small. Smal l pericardial effusion. There is an indwelling Rdoriguez catheter with decompression of the urinary bladder. No dilates loops of large or small bowel. No free intraperitoneal gas or fluid. Multiple splenic granulomas are present. The pancreas is unremarkable. The liver appears unremarkab le. The gallbladder is unremarkable. No hydronephrosis. There is an aortobifemoral graft in place. There is a focal penetrating atherosclerotic ulcer on axi al image 17, measuring 9 mm in craniocaudal dimension. This appears new from the 2016 examination. There is 50% narrowing of the superior mesenteric artery, in its entirety, with adequate distal perip heral flow. The left renal artery is patent with extensive plaque. The right renal arteries are patent with exte nsive plaque. The graft is patent. High-grade narrowing of the right femoral artery, incompletely evaluated, great er than 50%. Severe degenerative disease of both hips. No acute fracture of the lumbar spine. IMPRESSION: 1. Small bilateral pleural effusions and early edema. 2. Focal penetrating atherosclerotic ulcer on axial image 17, measuring 9 mm in craniocaudal dimensio n is new from the 2016 examination. 3. New retrosternal hematoma with new midline sternotomy wires, likely post surgical in nature. 4. Small pericardial effusion. 5. Small, peripherally enhancing collection of fluid behind the sternum, likely seroma, although if the patient is having findings of mediastinitis, this could be early infection. 6. Extensive atherosclerotic disease, as described, with narrowing of the superior mesenteric artery and celiac trunk, as well as right femoral artery. 7. Multiple old bilateral rib fractures. POS: [facility]
== END 2018-10-13 13:15 | disposition home or self-care (01) ==
LOC: ERS 10:07
DX: R33.9 Retention of urine, unspecified (principal); K21.9 Gastro-esophageal reflux disease without esophagitis; E78.5 Hyperlipidemia, unspecified; I10 Essential (primary) hypertension; J44.9 Chronic obstructive pulmonary disease, unspecified; F17.210 Nicotine dependence, cigarettes, uncomplicated; Z79.899 Other long term (current) drug therapy; Z79.82 Long term (current) use of aspirin
CPT/HCPCS: 36415; 51703; 74177; 80048; 81003; 85025; Q9966

== ENCOUNTER 2018-10-17 14:29 | Inpatient (IN) | payer MEDICARE, MEDICAID ==
--- NOTE | 2018-10-17 15:12 | RAD ---
RADIOGRAPH CHEST 1 VIEW: HISTORY: A 73-year-old male status post acute traumatic chest pain due to fall. FINDINGS: There are no air space densities, pulmonary edema, pneumothorax, or cardiomegaly. The lateral costop hrenic angles are sharp. IMPRESSION: 1. No acute cardiopulmonary findings. 2. Status post coronary artery bypass graft surgery is evidence for coronary atherosclerotic disease . 3. Multiple bilateral old rib fracture deformities. sierra [] POS: [facility]
[2018-10-17 15:16] LABS: #Eosinphils 0.2 thou/uL (0.0-0.7); #Lymphocytes 1.3 thou/uL (1.20-3.40); #Neutrophils 4.5 thou/uL (1.40-6.50); %Eosinophils 3.1 % (0.0-10.0); %Lymphocytes 18.3 % (21.0-51.0); %Monocytes 13.9 % (0.0-10.0); %Neutrophils 64.7 % (42.0-75.0); Hemoglobin 10.2 g/dL (14.0-18.0); Mean Corpuscular HGB CONC 30.1 g/dL (32.0-36.0); Mean Corpuscular Hemoglobin 27.8 pg (27.0-31.0); Mean Corpuscular Volume 92.5 fL (78.0-98.0); Mean Platelet Volume 7.5 fL (7.4-10.4); Platelet Count 332 thou/uL (130-400); RBC Distribution Width 18.1 % (11.5-14.5); Red Blood Cell (RBC) Count 3.66 mill/uL (4.70-6.10)
[2018-10-17 15:31] LABS: ALT (SGPT) 16 U/L (8-55); AST (SGOT) 15 U/L (5-34); Albumin 3.4 g/dL (3.4-4.8); Alkaline Phosphatase 105 U/L (40-150); Anion Gap 11 mmol/L (10-20); BUN (Urea Nitrogen) 14 mg/dL (8.4-25.7); Bilirubin, Total 0.3 mg/dL (0.2-1.2); Calc. Creatinine Clearance 0 mL/min (70-130); Calcium 8.5 mg/dL (7.8-10.44); Carbon Dioxide 24 mmol/L (23-31); Chloride 107 mmol/L (98-107); Estimated GFR-MDRD Greater than 90; Globulin 2.5 g/dL (2.4-3.5); Glucose 109 mg/dL (83-110); Protein, Total 5.9 g/dL (5.8-8.1); Sodium 139 mmol/L (136-145)
--- NOTE | 2018-10-17 15:56 | RAD ---
RADIOGRAPH LEFT HUMERUS TWO VIEWS: Date: 10-17-18 History: 73-year-old male status post acute trauma to the left arm. FINDINGS: No fracture of the humerus is identified. IMPRESSION: Negative. POS: [facility]
--- NOTE | 2018-10-17 15:57 | RAD ---
RADIOGRAPH LEFT FOREARM TWO VIEWS: History: 73-year-old male status post acute traumatic injury to the forearm. FINDINGS: No fracture of the radius or ulna. IMPRESSION: Negative. POS: [facility]
--- NOTE | 2018-10-17 16:04 | CT ---
CT BRAIN NONCONTRAST: DATE: 10-17-18 HISTORY: 73-year-old male status post acute head trauma from fall. FINDINGS: There is no midline shift or any other mass effect. There is no evidence of acute intracranial hemor rhage, large cortical infarct, obstructive hydrocephalus, or extraaxial fluid collection. The calvar ium is intact. There is diffuse parenchymal volume loss. There are low attenuation areas in the whi te matter. These are nonspecific, but in a patient of this age, they are probably chronic ischemic w aziza matter changes due to microvascular atherosclerosis. There are several old cortical infarctions ranging in size from small to moderate, including at bilateral occipital and bilateral upper parietal . IMPRESSION: 1) No acute intracranial findings. 2) Involutional changes and chronic ischemic white matter changes. 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 sierra POS: [facility]
[2018-10-17] MEDS ORDERED: Morphine 4 MG/ML VIAL ONE (16:24)
[2018-10-17] MEDS ORDERED: Bacitracin Zinc 1 Packet ONE (16:27)
[2018-10-17 17:07] LABS: Bilirubin Negative (Negative); Blood, Urine Negative (Negative); Clarity CLEAR (Clear); Glucose, Urine (Dipstick) Negative (Negative); Leukocyte Trace (Negative); Nitrite Positive (Negative); Protein, Urine (Dipstick) Trace mg/dL (Neg-Trace); Specific Gravity, Urine 1.013 (1.002-1.036); pH, Urine 6.5 (5.0-9.0)
[2018-10-17 17:09] LABS: Bacteria/HPF Rare-Few HPF (None Seen); Hyaline Casts/LPF 0-3 HYALINE CAST LPF (0-3 Hyaline); Pathc Cast-AUWi Flag 0.13 (0-2.49); RBC/HPF 0-3 HPF (0-3); Squamous Epithelial None Seen HPF (0-3); WBC/HPF 0-3 HPF (0-3)
[2018-10-17] MEDS ORDERED: cefTRIAXone\\ROCEPHIN 1 GM VIAL ONE (19:26)
[2018-10-17] MEDS ORDERED: Sodium Chloride 0.9% 100 ML ONE (19:26)
[2018-10-17] MEDS ORDERED: Sodium Chloride 0.45% 1,000 ML IV SCH (21:45)
[2018-10-17 23:09] VITALS: BMI 22.1
[2018-10-17] MEDS ORDERED: Acetaminophen 325 MG TAB PO PRN (23:26)
[2018-10-17] MEDS ORDERED: Potassium Chloride 20 MEQ TAB PO SCH (23:30)
[2018-10-17] MEDS ORDERED: Zolpidem Tartrate 5 MG TAB PO SCH (23:30)
[2018-10-18] MEDS ORDERED: Nitroglycerin 0.4 MG TAB (25 Tab Bottle) PO PRN (02:28)
[2018-10-18] MEDS ORDERED: Bisacodyl 10 MG SUPP PR PRN (02:29)
[2018-10-18] MEDS ORDERED: Calcium Carbonate 500 MG ChewTAB PO PRN (02:29)
--- NOTE | 2018-10-18 03:02 | HP ---
The patient was seen and examined on October 17, 2018. CHIEF COMPLAINT: Generalized weakness with fall. HISTORY OF PRESENT ILLNESS: The patient is a 73-year-old male who underwent recent coronary artery bypass grafting, presented to the emergency room after an episode of fall earlier today. Over the last 1 week, the patient has difficulty urinating. He had a Rodriguez catheter placed last week that was subsequently removed. After removal, the patient had urinary retention again requiring placement of the Rodriguez catheter two days ago. The patient slipped while in the bathroom this morning around 6 a.m. without any loss of consciousness. He fell hitting back of the head. He denies any loss of consciousness. He has some discomfort in the left shoulder from the fall. He currently lives alone and has been feeling generally weak over the last 1 to 2 weeks. He denies any chest pain, palpitations, double vision, blurring of vision, facial asymmetry, weakness, numbness of any of his extremities more than the other. He was started on ciprofloxacin when his Rodriguez catheter was removed last week. PAST MEDICAL HISTORY: 1. Coronary artery disease, status post recent CABG. 2. Tobacco dependence. 3. Peripheral vascular disease. 4. Chronic systolic and diastolic heart failure. 5. Benign prostatic hypertrophy. 6. Anxiety and depression. 7. Chronic anemia. 8. Chronic obstructive pulmonary disease. 9. Chronic left bundle-branch block. PAST SURGICAL HISTORY: 1. Coronary stents placement. 2. Aortobifemoral bypass. 3. Left carotid endarterectomy. ALLERGIES: NO KNOWN DRUG ALLERGIES. CURRENT HOME MEDICATIONS: 1. Sublingual nitroglycerin as needed. 2. Aspirin 325 mg daily. 3. Lipitor 80 mg at bedtime. 4. Celexa 20 mg daily. 5. Nexium 40 mg b.i.d. 6. Zetia 10 mg at bedtime. 7. Ferrous sulfate 65 mg daily. 8. Gabapentin 300 mg three times daily. 9. Flomax 0.4 mg at bedtime. 10. Anoro Ellipta 62.5/25 daily. 11. Ambien 10 mg at bedtime. 12. Carvedilol 6.25 mg b.i.d. 13. Proscar 5 mg daily. 14. [place] as needed. SOCIAL HISTORY: The patient currently lives alone at home. He ambulates with the help of a walker. He makes his own decision with the help of his family. He continues to smoke on a daily basis. He is currently at three cigarettes a day. No alcohol or drug use. FAMILY HISTORY: Positive for heart disease. REVIEW OF SYSTEMS: All other review of systems were reviewed and were found negative. PHYSICAL EXAMINATION: VITAL SIGNS: In the emergency room showed temperature 98.5, respirations 16, pulse of 75, blood pressure 131/61 with O2 saturation 96% on room air. GENERAL: A 73-year-old male, in mild distress due to left shoulder discomfort. HEENT: Head, atraumatic and normocephalic. Sclerae are anicteric. Moist mucous membrane. No oral lesion. NECK: Supple. No JVD appreciated. No carotid bruit. LUNGS: Showed diminished air entry at bilateral bases. No rhonchi or rales appreciated. Lungs were symmetrical. HEART: S1, S2 present. Well-healing midline incision from recent CABG. A 2/6 systolic murmur over the mitral area. No heaves or pulsation. EXTREMITIES: Trace edema in bilateral lower extremities. No calf tenderness. SKIN: Warm and dry. LYMPH NODES: No palpable lymph nodes in the neck. PERIPHERAL VASCULAR: Radial pulses are palpable bilaterally. MUSCULOSKELETAL: No joint swelling or tenderness. LABORATORY FINDINGS: WBC 7.0 with hemoglobin 10.2, hematocrit 33.9, platelet of 332. Chemistry showed sodium 139, potassium 3, chloride 107, bicarb 24, BUN 14, and creatinine 0.82. Troponin was negative. Chest x-ray by my review was negative for infiltrate. X-ray of the left humerus was negative. X-ray of the left forearm was negative. CT scan of the brain by my review was negative for acute findings. Chest x-ray by my review was negative for acute findings. IMPRESSION: 1. Generalized weakness, multifactorial. 2. Mechanical fall without significant injuries. 3. Ongoing tobacco dependence, the patient was counseled. 4. Coronary artery disease, status post recent coronary artery bypass graft. 5. Chronic obstructive pulmonary disease. 6. Chronic systolic and diastolic heart failure. 7. Benign prostatic hypertrophy. 8. Anxiety, depression, mild, stable. Denies any suicidal ideation. 9. History of ventricular arrhythmias in the past. 10. Hyperlipidemia. 11. Hypertension. 12. Peripheral vascular disease, status post aortobifemoral bypass. 13. Hypokalemia. PLAN: The patient is currently admitted on the medical floor. His recent ejection fraction was 35% to 40% on echocardiogram. We will hold IV fluids for now. Replace potassium. Consult Physical Therapy and Occupational Therapy. We will recheck labs in a.m. Resume home medications. We will check orthostatic vitals in a.m. Plan of care was discussed with the patient in detail, he stated understanding. Job ID: [id number]
[2018-10-18] MEDS: Aspirin 325 mg Enteric Coated Tablet PO SCH (08:24)
[2018-10-18] MEDS: Carvedilol 6.25 MG TAB PO SCH ×2 (08:24→16:01)
[2018-10-18] MEDS: Senokot S 8.6-50 MG TAB PO SCH ×2 (08:24→20:56)
[2018-10-18] MEDS: Potassium Chloride 20 MEQ TAB PO SCH ×2 (08:25→16:01)
[2018-10-18] MEDS: Finasteride 5 MG TAB PO SCH (08:25)
[2018-10-18] MEDS: Gabapentin 300 MG CAP PO SCH ×3 (08:25→20:55)
[2018-10-18] MEDS ORDERED: Non-Formulary Item 1 EACH (Umeclidinium/Vilanterol [Anoro Ellipta 62.5/25 Mcg Inh] 1 PUFF INH SCH (09:00)
[2018-10-18] MEDS ORDERED: Non-Formulary Item 1 EACH (Esomeprazole Magnesium [Nexium] 40 MG) PO SCH (09:00)
[2018-10-18 09:47] LABS: Anion Gap 12 mmol/L (10-20); BUN (Urea Nitrogen) 10 mg/dL (8.4-25.7); Calc. Creatinine Clearance 84 mL/min (70-130); Calcium 8.7 mg/dL (7.8-10.44); Carbon Dioxide 22 mmol/L (23-31); Chloride 106 mmol/L (98-107); Estimated GFR-MDRD Greater than 90; Glucose 106 mg/dL (83-110); Magnesium 1.8 mg/dL (1.6-2.6); Phosphorus 3.2 mg/dL (2.3-4.7); Potassium 4.4 mmol/L (3.5-5.1); Sodium 136 mmol/L (136-145)
--- NOTE | 2018-10-18 17:21 | PDOC.PN ---
- Subjective Encounter Start Date: 10/18/18 Encounter Start Time: 17:20 Subjective: Feeling better. Still complaining of left shoulder and arm pain. -: Denied dizziness, nausea or vomiting. - Objective Resuscitation Status - Order Detail: 10/18/18 02:29 Resuscitation Status Routine Resuscitation Status: FULL: Full Resuscitation Vital Signs & Weight: Vital Signs (12 hours) Temp Pulse Resp BP BP BP BP 10/18/18 16:11 99.0 F 109 H 16 186/76 H 10/18/18 16:01 157/83 H 10/18/18 15:59 98.1 F 70 16 157/83 H 10/18/18 14:41 72 20 10/18/18 11:19 97.9 F 67 16 158/82 H 10/18/18 08:31 10/18/18 08:28 81 16 10/18/18 08:24 178/84 H 10/18/18 07:55 97.4 F L 81 16 178/84 H 179/100 H 164/64 H Pulse Ox 10/18/18 16:11 94 L 10/18/18 16:01 10/18/18 15:59 96 10/18/18 14:41 95 10/18/18 11:19 97 10/18/18 08:31 97 10/18/18 08:28 97 10/18/18 08:24 10/18/18 07:55 97 Weight Weight 141 lb 8.588 oz I&O: 10/17/18 10/18/18 10/19/18 06:59 06:59 06:59 Intake Total 1340 Output Total 500 Balance 840 Result Diagrams: 10/17/18 14:51 10/18/18 08:54 Phys Exam - Physical Examination HEENT: PERRLA, moist MMs Neck: no JVD, supple, full ROM Fair air entry bilaterally with no crackles or rhonchi Cardiovascular: RRR soft systolic murmur Gastrointestinal: soft, non-tender, no distention, positive bowel sounds trace leg edema Neurological: non-focal, moves all 4 limbs Psychiatric: normal affect, A&O x 3 Dx/Plan (1) Catheter-associated urinary tract infection Code(s): T83.511A - I/I REACT D/T INDWELLING URETHRAL CATHETER, INIT; N39.0 - URINARY TRACT INFECTION, SITE NOT SPECIFIED Status: Acute (2) Fall Code(s): W19.XXXA - UNSPECIFIED FALL, INITIAL ENCOUNTER Status: Acute (3) Physical deconditioning Code(s): R53.81 - OTHER MALAISE Status: Acute (4) S/P CABG x 2 Code(s): Z95.1 - PRESENCE OF AORTOCORONARY BYPASS GRAFT Status: Acute (5) BPH (benign prostatic hyperplasia) Code(s): N40.0 - BENIGN PROSTATIC HYPERPLASIA WITHOUT LOWER URINRY TRACT SYMP Status: Chronic (6) Chronic combined systolic and diastolic CHF (congestive heart failure) Code(s): I50.42 - CHRONIC COMBINED SYSTOLIC AND DIASTOLIC HRT FAIL Status: Chronic (7) Hypertension Code(s): I10 - ESSENTIAL (PRIMARY) HYPERTENSION Status: Chronic Qualifiers: Hypertension type: essential hypertension Qualified Code(s): I10 - Essential (primary) hypertension - Plan Continue antibiotics. -: Start lisinopril 10 mg -: increase coreg to 12.5 bid -: Monitor vitals including orthostatics. -: PT/OT to continue. Anticipate acute rehab. * .
[2018-10-18] MEDS ORDERED: Carvedilol 6.25 MG TAB PO SCH (17:30)
[2018-10-18] MEDS ORDERED: cefTRIAXone\\ROCEPHIN 1 GM in Sodium Chloride 0.9% 100 ML IVPB SCH (20:00)
[2018-10-18] MEDS: Lisinopril 10 MG TAB PO SCH (20:55)
[2018-10-18] MEDS: Zolpidem Tartrate 5 MG TAB PO PRN ×2 (20:55→23:53)
[2018-10-18] MEDS ORDERED: Atorvastatin Calcium 40 MG TAB PO SCH (21:00)
[2018-10-18] MEDS ORDERED: Ezetimibe 10 MG TAB PO SCH (21:00)
[2018-10-18] MEDS ORDERED: Tamsulosin HCl 0.4 MG CAP PO SCH (21:00)
[2018-10-18] MEDS ORDERED: Zolpidem Tartrate 5 MG TAB ONE (23:43)
[2018-10-19 06:43] LABS: Anion Gap 9 mmol/L (10-20); BUN (Urea Nitrogen) 8 mg/dL (8.4-25.7); Calc. Creatinine Clearance 81 mL/min (70-130); Calcium 8.7 mg/dL (7.8-10.44); Carbon Dioxide 26 mmol/L (23-31); Chloride 100 mmol/L (98-107); Estimated GFR-MDRD Greater than 90; Glucose 89 mg/dL (83-110); Potassium 3.9 mmol/L (3.5-5.1); Sodium 131 mmol/L (136-145)
[2018-10-19 07:36] VITALS: TEMP 98
[2018-10-19] MEDS ORDERED: Carvedilol 6.25 MG TAB PO SCH (08:00)
[2018-10-19] MEDS: Finasteride 5 MG TAB PO SCH (08:51)
[2018-10-19] MEDS: Potassium Chloride 20 MEQ TAB PO SCH (08:51)
[2018-10-19] MEDS: Carvedilol 6.25 MG TAB PO SCH ×2 (08:52→16:16)
[2018-10-19] MEDS: Aspirin 325 mg Enteric Coated Tablet PO SCH (08:52)
[2018-10-19] MEDS: Gabapentin 300 MG CAP PO SCH ×2 (08:53→16:16)
[2018-10-19] MEDS: Lisinopril 10 MG TAB PO SCH (08:53)
[2018-10-19] MEDS: Senokot S 8.6-50 MG TAB PO SCH (08:55)
--- NOTE | 2018-10-19 11:46 | DIS ---
DATE OF ADMISSION: 10/17/2018 DATE OF DISCHARGE: 10/19/2018 DISCHARGE DIAGNOSES: 1. Physical deconditioning. 2. Fall (mechanical). 3. Catheter-associated urinary tract infection. 4. Status post recent coronary artery bypass graft. 5. Urinary retention with indwelling Rodriguez catheter. 6. Benign prostatic hyperplasia. 7. Chronic combined systolic and diastolic heart failure. 8. Hypertension. 9. Hyperlipidemia. HOSPITAL COURSE: A 73-year-old with recent coronary artery bypass grafting, who was brought in to the hospital after a fall associated with generalized weakness. The patient reported that he tangled with the Rodriguez catheter and fell. He however was unable to get up and was found to be very weak. Further evaluation with UA showed positive nitrites suggestive of urinary tract infection. The patient has chronic indwelling Rodriguez catheter after he was found to have acute urinary retention and failed voiding trial, and was subsequently put back on Rodriguez catheter by urologist. The patient was seen by Physical and Occupational Therapy, and acute rehabilitation was recommended. The patient was found to have uncontrolled high blood pressure, which improved with the addition of lisinopril to his medication. He remained stable and was subsequently discharged to acute rehabilitation. PHYSICAL EXAMINATION: VITAL SIGNS: BP 128/76, pulse 77, respiratory rate 16, SpO2 of 98 on room air, and temperature 98. GENERAL: Elderly male, in no obvious distress. Afebrile, anicteric, acyanotic. HEENT: Normocephalic, atraumatic. Oral mucosa moist. RESPIRATORY: Good air entry bilaterally with no obvious crackle or rhonchi or use of accessory muscles. CARDIOVASCULAR: Regular rhythm and rate, with normal heart sounds one and two. GI: Abdomen is full, soft, nontender, nondistended with normal bowel sounds. EXTREMITIES: Left arm ecchymosis noted. No obvious edema noted on both legs. The patient moves all extremities. NEUROLOGIC: Conscious and alert, oriented x3 with appropriate mental status. Cranial nerves 2 through 12 are intact. DISCHARGE CONDITION: Fair. DISCHARGE MEDICATIONS: 1. Levofloxacin 500 mg daily for seven days. 2. Aspirin 325 mg daily. 3. Ferrous sulfate 65 mg daily. 4. Hydrocodone/acetaminophen 5/325 one to two tablets p.r.n. for pain. 5. Nitroglycerin 0.4 mg sublingual every 5 minutes p.r.n. for chest pain. 6. Ambien 10 mg p.o. at bedtime. 7. Citalopram 20 mg daily. 8. Lipitor 80 mg at bedtime. 9. Carvedilol 6.25 mg b.i.d. 10. Nexium 40 mg p.o. b.i.d. 11. Ezetimibe (Zetia) 10 mg at bedtime. 12. Finasteride 5 mg daily. 13. Gabapentin 300 mg t.i.d. 14. Flomax 0.4 mg at bedtime. 15. Anoro Ellipta one puff inhalation daily. 16. Lisinopril 10 mg daily. FOLLOWUP: The patient is to follow with PCP on discharge from the acute rehab. He is also to follow up with urologist. Rodriguez catheter should be kept until otherwise instructed by the urologist. This discharge took more than 30 minutes. Job ID: [id number]
[2018-10-19 16:18] VITALS: BP 133/78
== END 2018-10-19 18:26 | DRG 699 ==
LOC: ERS 14:29 → T4-A 20:55 → OBSVTOIN 20:55
PROVIDERS: ADMIT Internal Medicine; ATTEND Internal Medicine
DX: T83.511A Infection and inflammatory reaction due to indwelling urethral catheter, initial encounter (principal); I50.42 Chronic combined systolic (congestive) and diastolic (congestive) heart failure; W19.XXXA Unspecified fall, initial encounter; Z95.1 Presence of aortocoronary bypass graft; N40.0 Benign prostatic hyperplasia without lower urinary tract symptoms; I11.0 Hypertensive heart disease with heart failure; E78.5 Hyperlipidemia, unspecified; I25.10 Atherosclerotic heart disease of native coronary artery without angina pectoris; F17.200 Nicotine dependence, unspecified, uncomplicated; F41.9 Anxiety disorder, unspecified; F32.9 Major depressive disorder, single episode, unspecified; I73.9 Peripheral vascular disease, unspecified; E87.6 Hypokalemia
CPT/HCPCS: 36415; 70450; 71045; 80048; 80053; 81003; 81015; 83735; 84100; 84484; 85025; 93005; 94640; 94760; 96365; 96375; J0696; J2270; J7050; J7620

== ENCOUNTER 2020-06-17 16:04 | Emergency (ER) | payer MEDICARE, MEDICAID ==
[~2020-06-17 16:04] MED LIST: Iopamidol-370 76% 500 ML 1 ML ONE
[2020-06-17 16:43] LABS: Bilirubin Negative (Negative); Blood, Urine Negative (Negative); Clarity Clear (Clear); Glucose, Urine (Dipstick) Normal (Negative); Ketone, Urine Negative (Negative); Leukocyte Negative Leu/uL (Negative); Nitrite Negative (Negative); Protein, Urine (Dipstick) Negative (Neg-Trace); Specific Gravity, Urine 1.011 (1.002-1.036); Urobilinogen Normal mg/dL (Less than 2)
[2020-06-17 16:45] LABS: Hemoglobin 14.5 g/dL (14.0-18.0); Mean Corpuscular HGB CONC 34.1 g/dL (32.0-36.0); Mean Corpuscular Hemoglobin 34.1 pg (27.0-31.0); Mean Platelet Volume 7.9 fL (7.4-10.4); Platelet Count 245 thou/uL (130-400); RBC Distribution Width 13.6 % (11.5-14.5); Red Blood Cell (RBC) Count 4.25 mill/uL (4.70-6.10); White Blood Cell (WBC) Count 5.9 thou/uL (4.8-10.8)
[2020-06-17 16:48] LABS: Prothrombin Time 12.8 sec (12.0-14.7)
[2020-06-17 17:02] LABS: Band 2 % (5-11); Eosinophils 1 % (0-10); Lymphocytes 18 % (21-51); MDiff Complete? YES; Macrocytosis SLIGHT = 6-15 cells (100X) (0-5/hpf); Monocytes 11 % (0-10); Neutrophil 63 % (42-75); Platelet Morphology Comment Appears Adequate; Reactive Lymphocytes 5 % (0-10)
[2020-06-17 17:04] LABS: ALT (SGPT) 14 U/L (8-55); AST (SGOT) 16 U/L (5-34); Albumin 4.1 g/dL (3.4-4.8); Alkaline Phosphatase 94 U/L (40-110); Anion Gap 15 mmol/L (10-20); BUN (Urea Nitrogen) 11 mg/dL (8.4-25.7); Bilirubin, Total 0.5 mg/dL (0.2-1.2); Calc. Creatinine Clearance 0 mL/min (70-130); Calcium 9.1 mg/dL (7.8-10.44); Carbon Dioxide 23 mmol/L (23-31); Chloride 102 mmol/L (98-107); Estimated GFR-MDRD Greater than 90; Globulin 2.9 g/dL (2.4-3.5); Glucose 90 mg/dL (83-110); Potassium 4.3 mmol/L (3.5-5.1); Sodium 136 mmol/L (136-145)
[2020-06-17 17:15] LABS: Acetaminophen Less than 6.0 mcg/mL (10.0-30.0); Alcohol Less than 10 mg/dL (Less than 10); Salicylate Less than 8.0 mg/dL (15.0-30.0)
[2020-06-17 17:17] LABS: CK (CPK) 62 U/L (30-200); Lipase 8 U/L (8-78)
[2020-06-17 17:35] LABS: CKMB 2.4 ng/mL (0-6.6)
--- NOTE | 2020-06-17 17:36 | CT ---
CT BRAIN WITHOUT CONTRAST: HISTORY:Fall, headache COMPARISON:10/17/2018 FINDINGS: There are foci of decreased attenuation in the periventricular white matter, consistent with chronic small vessel ischemic disease. Changes of cortical atrophy is again seen. 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 No evidence of acute infarct, hemorrhage, midline shift or abnormal extra-axial fluid collections is seen. The ventricular size is appropriate and the basilar cisterns are patent. The bony calvarium is intact. There is mucosal disease in the paranasal sinuses. IMPRESSION: No CT evidence of acute intracranial process.
[2020-06-17 17:42] LABS: Amphetamine Not Detected (NotDetected); Benzodiazepine Screen Detected (NotDetected); Cocaine Metabolite Screen Not Detected (NotDetected); Medtox Reader # READER 4; Methadone Not Detected (NotDetected); Methamphetamine Not Detected (NotDetected); Opiate Screen Not Detected (NotDetected); Phencyclidine (PCP) Not Detected (NotDetected); THC/Cannabinoid Screen Detected (NotDetected); Tricyclic Screen Not Detected (NotDetected)
[2020-06-17 17:43] LABS: Barbiturates Screen Not Detected (NotDetected); Medtox Control Line Valid? VALID (VALID); Oxycodone Screen Not Detected (NotDetected)
--- NOTE | 2020-06-17 17:43 | CT ---
CT CERVICAL SPINE WITH CORONAL AND SAGITTAL REFORMATIONS AND NO IV CONTRAST: HISTORY: Fall, neck pain COMPARISON: 08/08/2016 FINDINGS: Multilevel degenerative changes are present. There is minimal anterolisthesis of C2 over C3. No fracture, subluxation or facet malalignment is identified. No prevertebral soft tissue swelling is apparent. There are chronic changes in the lung apices. IMPRESSION: No CT evidence for acute cervical spine fracture or traumatic subluxation.
--- NOTE | 2020-06-17 18:29 | CT ---
CT CHEST AND ABDOMEN AND PELVIS WITH IV CONTRAST CORONAL AND SAGITTAL REFORMATIONS OF THE THORACOLUMBAR SPINE: Date: 06/17/2020 HISTORY: Trauma, chest pain, back pain, abdominal pain. COMPARISON: 02/02/2016. FINDINGS: There are vascular calcifications without evidence of aneurysmal dilatation of the thoracoabdominal a pebbles. No intimal flap is seen to suggest aortic transection or dissection. No mediastinal hematoma is seen. No pleural or pericardial effusions are identified. No pneumothoraces or pulmonary contusions are yin ntified. There are dependent changes in the posterior lung bases. Calcified granuloma in the left kylie g base is again noted. The liver, spleen, pancreas, adrenal glands, and kidneys are intact. Gallbladder and urinary bladder also appear intact. No free air or free fluid is seen in the abdomen or pelvis. Multiple calcified gr anulomas are seen in the spleen. Postop changes of aortobifemoral bypass graft are again seen. Old right posterior rib fractures are noted. No acute osseous abnormalities seen. There are degenerat brianna changes in the thoracolumbar spine without evidence of acute fracture or subluxation. IMPRESSION: No CT evidence of acute intrathoracic or solid organ injury. POS: OFF
[2020-06-17] MEDS ORDERED: Aspirin Chewable 81 MG TAB ONE ×2 (19:46→19:48)
[2020-06-17] MEDS ORDERED: Furosemide 40 MG/4 ML VIAL ONE (19:46)
[2020-06-18 12:37] LABS: SARS-CoV-2 MS2 Positive; SARS-CoV-2 N Gene Negative; SARS-CoV-2 S Gene Negative; SARS-CoV-2 by NAA Not Detected (NotDetected); SARS-CoV-2 orf1ab Negative
== END 2020-06-17 20:28 | disposition short-term general hospital (02) ==
LOC: ERS 16:04
DX: S20.211A Contusion of right front wall of thorax, initial encounter (principal); R45.851 Suicidal ideations; I11.0 Hypertensive heart disease with heart failure; I50.9 Heart failure, unspecified; I25.2 Old myocardial infarction; E78.5 Hyperlipidemia, unspecified; F17.210 Nicotine dependence, cigarettes, uncomplicated; Z79.899 Other long term (current) drug therapy; W18.30XA Fall on same level, unspecified, initial encounter
CPT/HCPCS: 36415; 70450; 71260; 72125; 74177; 80053; 80306; 80307; 81003; 82550; 82553; 83690; 83880; 84484; 85025; 85610; 87635; 93005; J1940; U0003

== ENCOUNTER 2021-05-24 14:06 | Outpatient (CLI) | payer MEDICARE, MEDICAID ==
[2021-05-24 14:59] LABS: Hemoglobin 13.2 g/dL (13.5-17.5); Mean Corpuscular HGB CONC 32.8 g/dL (32.0-36.0); Mean Corpuscular Hemoglobin 32.2 pg (27.0-33.0); Mean Platelet Volume 10.6 fl (7.4-10.4); Platelet Count 258 10x3/uL (150-450); RBC Distribution Width 13.2 % (11.5-14.5); White Blood Cell (WBC) Count 7.1 10x3/uL (3.5-10.5)
[2021-05-24 15:18] LABS: Anion Gap 16 mmol/L (10-20); BUN (Urea Nitrogen) 19 mg/dL (8.4-25.7); Calc. Creatinine Clearance 0 mL/min (70-130); Calcium 9.5 mg/dL (7.8-10.44); Carbon Dioxide 23 mmol/L (23-31); Chloride 106 mmol/L (98-107); Glucose 116 mg/dL (83-110); Potassium 4.2 mmol/L (3.5-5.1); Sodium 141 mmol/L (136-145)
[2021-05-25 16:49] LABS: SARS-CoV-2 PCR by NAA Not Detected (NotDetected)
== END 2021-05-24 14:07 | disposition home or self-care (01) ==
LOC: LABBT 14:06
PROVIDERS: ATTEND Orthopaedic Surgery
DX: Z01.812 Encounter for preprocedural laboratory examination (principal); Z20.822 Contact with and (suspected) exposure to COVID-19
CPT/HCPCS: 80048; 85027; U0003; U0005

== ENCOUNTER 2021-05-29 09:48 | Day surgery (SDC) | payer MEDICARE, MEDICAID ==
[2021-05-28 15:32] VITALS: BMI 27.4
[2021-05-29] MEDS ORDERED: Famotidine/PF 20 mg/2ml Vial ONE (10:12)
[2021-05-29] MEDS ORDERED: Fentanyl 100 MCG/2 ML VIAL ONE (10:12)
[2021-05-29] MEDS ORDERED: Midazolam HCl 2 mg/2 ml Vial ONE (10:12)
[2021-05-29] MEDS ORDERED: Propofol 500 MG/50 ML VIAL ONE (10:12)
[2021-05-29] MEDS ORDERED: PROPOFOL 40 ML ONE (10:12)
[2021-05-29] MEDS ORDERED: ceFAZolin 2 GM/DEX 5% 100 ML BAG ONE (10:19)
[2021-05-29] MEDS ORDERED: Neomycin-Polymyxin 1 ML AMP ONE (11:45)
[2021-05-29] MEDS ORDERED: EPINEPHrine 1 MG/ML AMP ONE (11:45)
[2021-05-29] MEDS ORDERED: Bupivacaine PF 0.5% 30 ML VIAL ONE (11:45)
[2021-05-29] MEDS ORDERED: Ondansetron PF 4 MG/2 ML Vial ONE (12:45)
[2021-05-29] MEDS ORDERED: Lidocaine 1% PF 5 ML VIAL ONE (12:45)
[2021-05-29] MEDS ORDERED: PROPOFOL 200 MG/20 ML VIAL ONE (12:45)
[2021-05-29] MEDS ORDERED: Ketorolac Tromethamine 30 MG/ML VIAL ONE (12:45)
== END 2021-05-29 14:42 ==
LOC: SDC 09:48
PROVIDERS: ATTEND Orthopaedic Surgery
PROC: 0JBK0ZZ Excision of Left Hand Subcutaneous Tissue and Fascia, Open Approach (ICD-10-PCS; principal; 2021-05-29)
DX: L72.0 Epidermal cyst (principal); I25.2 Old myocardial infarction; I25.10 Atherosclerotic heart disease of native coronary artery without angina pectoris; I10 Essential (primary) hypertension; E78.5 Hyperlipidemia, unspecified; N40.0 Benign prostatic hyperplasia without lower urinary tract symptoms; M19.90 Unspecified osteoarthritis, unspecified site; Z87.891 Personal history of nicotine dependence; Z79.899 Other long term (current) drug therapy; Z95.1 Presence of aortocoronary bypass graft; Z95.5 Presence of coronary angioplasty implant and graft
CPT/HCPCS: 87070; 87205; 88304; J0171; J1885; J2250; J2405; J2704; J3010; S0020; S0028

== ENCOUNTER 2021-08-21 03:27 | Emergency (ER) | payer MEDICARE, MEDICAID ==
[2021-08-21 05:24] LABS: #Eosinphils 0.1 thou/uL (0.0-0.7); #Lymphocytes 1.1 thou/uL (1.20-3.40); #Monocytes 0.4 thou/uL (0.11-0.59); #Neutrophils 7.8 thou/uL (1.40-6.50); %Basophils 0.2 % (0.0-1.0); %Eosinophils 0.7 % (0.0-10.0); %Lymphocytes 11.5 % (21.0-51.0); %Monocytes 4.6 % (0.0-10.0); Hemoglobin 13.1 g/dL (14.0-18.0); Mean Corpuscular HGB CONC 33.1 g/dL (32.0-36.0); Mean Corpuscular Hemoglobin 34.1 pg (27.0-31.0); Mean Platelet Volume 8.2 fL (7.4-10.4); Platelet Count 209 thou/uL (130-400); Red Blood Cell (RBC) Count 3.83 mill/uL (4.70-6.10); White Blood Cell (WBC) Count 9.4 thou/uL (4.8-10.8)
[2021-08-21 05:45] LABS: ALT (SGPT) 14 U/L (8-55); AST (SGOT) 14 U/L (5-34); Albumin 3.9 g/dL (3.4-4.8); Alkaline Phosphatase 80 U/L (40-110); Anion Gap 14 mmol/L (10-20); BUN (Urea Nitrogen) 24 mg/dL (8.4-25.7); Bilirubin, Total 0.3 mg/dL (0.2-1.2); Calc. Creatinine Clearance 0 mL/min (70-130); Calcium 8.7 mg/dL (7.8-10.44); Carbon Dioxide 22 mmol/L (23-31); Chloride 107 mmol/L (98-107); Glucose 112 mg/dL (83-110); Protein, Total 6.9 g/dL (5.8-8.1); Sodium 139 mmol/L (136-145)
== END 2021-08-21 05:28 | disposition home or self-care (01) ==
LOC: ERS 03:27
DX: J44.1 Chronic obstructive pulmonary disease with (acute) exacerbation (principal); I25.2 Old myocardial infarction; E78.5 Hyperlipidemia, unspecified; I11.0 Hypertensive heart disease with heart failure; I50.9 Heart failure, unspecified; I25.10 Atherosclerotic heart disease of native coronary artery without angina pectoris; K21.9 Gastro-esophageal reflux disease without esophagitis; F17.210 Nicotine dependence, cigarettes, uncomplicated; Z79.899 Other long term (current) drug therapy
CPT/HCPCS: 36415; 71045; 80053; 83880; 84484; 85025; 93005; J7620

== ENCOUNTER 2021-09-27 12:10 | Outpatient (CLI) | payer MEDICARE, OTHER ==
[2021-09-28 00:49] LABS: SARS-CoV-2 PCR by NAA Not Detected (NotDetected)
== END 2021-09-27 12:11 | disposition home or self-care (01) ==
LOC: LABBT 12:10
PROVIDERS: ATTEND Internal Medicine
DX: Z01.812 Encounter for preprocedural laboratory examination (principal); R19.5 Other fecal abnormalities; Z20.822 Contact with and (suspected) exposure to COVID-19
CPT/HCPCS: U0003; U0005

== ENCOUNTER 2021-10-02 06:38 | Day surgery (SDC) | payer MEDICARE, MEDICAID ==
[2021-09-30 14:33] VITALS: BMI 23.3
[2021-10-02] MEDS ORDERED: Ketamine 50 MG/ML (10ML VIAL) ONE (07:09)
[2021-10-02] MEDS ORDERED: PROPOFOL 200 MG/20 ML VIAL ONE (09:00)
== END 2021-10-02 10:45 ==
LOC: SDC 06:38
PROVIDERS: ATTEND Internal Medicine
PROC: 0DB78ZX Excision of Stomach, Pylorus, Via Natural or Artificial Opening Endoscopic, Diagnostic (ICD-10-PCS; principal; 2021-10-02)
PROC: 0DBK8ZX Excision of Ascending Colon, Via Natural or Artificial Opening Endoscopic, Diagnostic (ICD-10-PCS; 2021-10-02)
PROC: 0DBL8ZX Excision of Transverse Colon, Via Natural or Artificial Opening Endoscopic, Diagnostic (ICD-10-PCS; 2021-10-02)
DX: K57.31 Diverticulosis of large intestine without perforation or abscess with bleeding (principal); D12.2 Benign neoplasm of ascending colon; D12.3 Benign neoplasm of transverse colon; K31.89 Other diseases of stomach and duodenum; K25.4 Chronic or unspecified gastric ulcer with hemorrhage; K44.9 Diaphragmatic hernia without obstruction or gangrene; K64.8 Other hemorrhoids; K64.4 Residual hemorrhoidal skin tags; D50.9 Iron deficiency anemia, unspecified; E78.5 Hyperlipidemia, unspecified; I25.10 Atherosclerotic heart disease of native coronary artery without angina pectoris; I11.0 Hypertensive heart disease with heart failure; I50.9 Heart failure, unspecified; I25.2 Old myocardial infarction; E78.00 Pure hypercholesterolemia, unspecified; Z86.010 Personal history of colon polyps; Z86.73 Personal history of transient ischemic attack (TIA), and cerebral infarction without residual deficits; Z87.891 Personal history of nicotine dependence; Z79.899 Other long term (current) drug therapy; Z95.1 Presence of aortocoronary bypass graft; Z95.5 Presence of coronary angioplasty implant and graft
CPT/HCPCS: 88305; J2704

== ENCOUNTER 2022-12-05 11:06 | Emergency (ER) | payer MEDICARE, OTHER ==
[2022-12-05 12:29] LABS: #Eosinphils 0.2 thou/uL (0.0-0.7); #Lymphocytes 1.6 thou/uL (1.20-3.40); #Monocytes 0.8 thou/uL (0.11-0.59); #Neutrophils 4.4 thou/uL (1.40-6.50); %Basophils 0.4 % (0.0-1.0); %Eosinophils 3.1 % (0.0-10.0); %Lymphocytes 22.4 % (21.0-51.0); %Monocytes 11.3 % (0.0-10.0); %Neutrophils 62.9 % (42.0-75.0); Hemoglobin 11.5 g/dL (14.0-18.0); Mean Corpuscular HGB CONC 31.6 g/dL (32.0-36.0); Mean Corpuscular Hemoglobin 31.1 pg (27.0-31.0); Mean Corpuscular Volume 98.4 fl (78.0-98.0); Platelet Count 264 10x3/uL (130-400); RBC Distribution Width 13.5 % (11.5-14.5); Red Blood Cell (RBC) Count 3.71 mill/uL (4.70-6.10)
[2022-12-05 12:38] LABS: INR-International Normal Ratio 1.1; Prothrombin Time 14.8 sec (12.0-14.7)
[2022-12-05 12:39] LABS: PTT 44.5 sec (22.9-36.1)
[2022-12-05 12:53] LABS: ALT (SGPT) 11 U/L (8-55); AST (SGOT) 11 U/L (5-34); Albumin 4.1 g/dL (3.4-4.8); Alkaline Phosphatase 83 U/L (40-110); Anion Gap 14 mmol/L (10-20); BUN (Urea Nitrogen) 22 mg/dL (8.4-25.7); Bilirubin, Total 0.3 mg/dL (0.2-1.2); Calc. Creatinine Clearance 0 mL/min (70-130); Calcium 9.2 mg/dL (7.8-10.44); Carbon Dioxide 26 mmol/L (23-31); Chloride 103 mmol/L (98-107); Estimated GFR 61; Globulin 3.3 g/dL (2.4-3.5); Glucose 90 mg/dL (83-110); Potassium 4.2 mmol/L (3.5-5.1); Protein, Total 7.4 g/dL (5.8-8.1); Sodium 139 mmol/L (136-145)
[2022-12-05] MEDS ORDERED: HYDROcodone/Acetaminophen 5/325 mg Tablet ONE (15:56)
== END 2022-12-05 16:02 | disposition home or self-care (01) ==
LOC: ERS 11:06
DX: M79.605 Pain in left leg (principal); E78.5 Hyperlipidemia, unspecified; I10 Essential (primary) hypertension; J44.9 Chronic obstructive pulmonary disease, unspecified; I25.10 Atherosclerotic heart disease of native coronary artery without angina pectoris; I50.9 Heart failure, unspecified; K21.9 Gastro-esophageal reflux disease without esophagitis; F17.210 Nicotine dependence, cigarettes, uncomplicated; Z79.01 Long term (current) use of anticoagulants
CPT/HCPCS: 36415; 80053; 85025; 85610; 85730; 93923

== ENCOUNTER 2023-03-04 11:32 | Emergency (ER) | payer MEDICARE, OTHER ==
[2023-03-04 12:47] LABS: Bacteria/HPF None Seen HPF (None Seen); Bilirubin Negative (Negative); Blood, Urine Negative (Negative); CAUTI Indications for Culture Alt mental st,lethar; Clarity Clear (Clear); Glucose, Urine (Dipstick) Normal (Negative); Ketone, Urine Negative (Negative); Leukocyte Negative Leu/uL (Negative); Nitrite Negative (Negative); Protein, Urine (Dipstick) 10 mg/dL (Neg-Trace); RBC/HPF 0-3 HPF (0-3); Specific Gravity, Urine 1.023 (1.002-1.036); Squamous Epithelial None Seen HPF (0-3); WBC/HPF 0-3 HPF (0-3); pH, Urine 6.5 (5.0-9.0)
[2023-03-04 12:49] LABS: Urine Culture Reflex No No
[2023-03-04 13:04] LABS: #Eosinphils 0.1 thou/uL (0.0-0.7); #Monocytes 1.3 thou/uL (0.11-0.59); #Neutrophils 12.9 thou/uL (1.40-6.50); %Basophils 0.2 % (0.0-1.0); %Eosinophils 0.7 % (0.0-10.0); %Lymphocytes 10.7 % (21.0-51.0); %Monocytes 8.3 % (0.0-10.0); %Neutrophils 79.2 % (42.0-75.0); Hemoglobin 9.3 g/dL (14.0-18.0); Mean Corpuscular HGB CONC 32.9 g/dL (32.0-36.0); Mean Corpuscular Hemoglobin 30.6 pg (27.0-31.0); Mean Corpuscular Volume 93.1 fl (78.0-98.0); Mean Platelet Volume 10.5 fL (7.4-10.4); Platelet Count 322 10x3/uL (130-400); RBC Distribution Width 14.5 % (11.5-14.5); Red Blood Cell (RBC) Count 3.04 mill/uL (4.70-6.10); White Blood Cell (WBC) Count 16.2 10x3/uL (4.8-10.8)
[2023-03-04 13:38] LABS: ALT (SGPT) 25 U/L (8-55); AST (SGOT) 23 U/L (5-34); Albumin 3.3 g/dL (3.4-4.8); Alkaline Phosphatase 64 U/L (40-110); Anion Gap 11 mmol/L (10-20); BUN (Urea Nitrogen) 19 mg/dL (8.4-25.7); Bilirubin, Total 0.4 mg/dL (0.2-1.2); Calc. Creatinine Clearance 0 mL/min (70-130); Calcium 8.1 mg/dL (7.8-10.44); Carbon Dioxide 24 mmol/L (23-31); Chloride 108 mmol/L (98-107); Estimated GFR 92; Globulin 3.2 g/dL (2.4-3.5); Glucose 99 mg/dL (83-110); Potassium 3.7 mmol/L (3.5-5.1); Protein, Total 6.5 g/dL (5.8-8.1); Sodium 139 mmol/L (136-145)
[2023-03-04] MEDS ORDERED: Clindamycin 150 MG CAP ONE (14:21)
== END 2023-03-04 15:30 ==
LOC: ERS 11:32
DX: T81.49XA Infection following a procedure, other surgical site, initial encounter (principal); L08.89 Other specified local infections of the skin and subcutaneous tissue; I11.0 Hypertensive heart disease with heart failure; I50.9 Heart failure, unspecified; J44.9 Chronic obstructive pulmonary disease, unspecified
CPT/HCPCS: 36415; 51701; 71045; 80053; 81001; 83605; 85025; 87040; 87086